=== PATIENT | female | born 1955 | race Caucasian/White ===

== ENCOUNTER 2018-04-25 13:54 | Emergency (ER) | payer MEDICAID, SELFPAY ==
[2018-04-25 14:07] VITALS: BP 178/95; PULSE 118; RESP 20; TEMP 37.1; O2SAT 97
--- NOTE | 2018-04-25 14:58 | ED.GENADUL ---
Disposition Clinical Impression: Back pain, Leg pain, left Disposition: HOME Instructions: Back Pain (ED) Additional Instructions: Please use crutches as needed for comfort over the next week. Please take ibuprofen 600 mg by mouth every 6-8 hours as needed for pain for the next few days. Please follow-up with your primary care physician. Call for an appointment. Please follow-up with neurosurgery as directed by her primary care physician. Return to the emergency department immediately for any worsening or new concerning symptoms including fever, worsening pain, neurologic deficits (weakness or numbness). Referrals: Kathleen Banks [Primary Care Provider] - Medical Decision Making - Medical Decision Making 62yo f with history of chronic low back pain, spinal stenosis, hypertension, mixed connective tissue disease, anxiety, here with back pain and left thigh/groin pain. Neuro exam nonspecific with chronic tremor. Abdominal exam benign. Patient is quite anxious. She is tachycardic I suspect as a result of pain and anxiety. She given Toradol 30 mg IM, Dilaudid 1 mg IM and Ativan 1 mg IM. She was reassessed and noted to have significant improvement in her pain. She was able to ambulate although requested crutches because she thought this would help her keep weight off of her left leg. Patient remained anxious although improved. I advised that she follow-up with her primary care physician to specifically discuss reviewing her medications for any modifications and also to follow-up with neurosurgery as referred by primary care physician. I emphasized that she should return to the ER immediately should she have any worsening or new concerning symptoms. History of Present Illness - General Chief complaint: Nk/Back Pain Stated complaint: LEG PROBLEM Time Seen by Provider: 04/25/18 13:56 Source: patient, RN notes reviewed Mode of arrival: ambulatory Limitations: no limitations - History of Present Illness Initial comments: 62-year-old female with history of mixed connective tissue disease, chronic low back pain, spinal stenosis, hypertension, tremor, anxiety, presents today with back pain. Patient states she has chronic pain in her low back typically radiates into her right leg. She was gardening 3 days ago and developed pain radiating from her low back into her left thigh and groin. Pain is been severe and worse with movement. She has had difficulty ambulating. Patient has been seen by spine clinics as well as pain center for her chronic pain. Current management includes fentanyl patches prescribed by pcp. Dose was recently increased. Patient notes chronic intermittent urinary and stool incontinence. Of note, she was seen here in emergency department for back pain on 04/06/2018 and had an MRI at that time that did show degenerative changes with disc herniation, mild central canal stenosis as well as right neural foraminal stenosis. - Related Data Atorvastatin Calcium 80 mg PO DAILY tab-cap 05/19/17 Fentanyl 75 mcg TD q 72 hrs 05/19/17 Fluoxetine HCl [Prozac] 40 mg PO DAILY tab-cap 05/19/17 Furosemide 40 mg PO DAILY tab-cap 05/19/17 Gabapentin 800 mg PO TID tab-cap 05/19/17 Hydroxychloroquine Sulfate [Plaquenil] 300 mg PO DAILY 05/19/17 Lorazepam 0.5 mg PO HS prn 05/19/17 Losartan/Hydrochlorothiazide [Losartan-Hctz 100-25 mg Tab] 1 tab-cap PO DAILY tab-cap 05/19/17 Pantoprazole Sodium [Protonix] 40 mg PO DAILY packet 05/19/17 Prednisone 30 mg PO DAILY 05/19/17 Phenergan 25 mg PO BID 05/31/17 Alendronate [Fosamax] 70 mg PO .WEEKLY 04/06/18 Amphet Asp/Amphet/D-Amphet [Adderall Xr 20MG Capsule SA] 20 mg PO DAILY 04/06/18 Dextroamphetamine/Amphetamine [Dextroamp-Amphet ER 20 mg Cap] 20 mg PO .QAFTERNOON 04/06/18 Dicyclomine [Bentyl] 10 mg PO QID 04/06/18 Pilocarpine HCl 5 mg PO DAILY 04/06/18 Allergies Allergy/AdvReac Type Severity Reaction Status Date / Time lidocaine Allergy arm numb Unverified 04/25/18 14:[address], traveled up arm diazepam [From Valium] AdvReac hyper Unverified 04/25/18 14:10 oxycodone AdvReac vomiting Unverified 04/25/18 14:10 scopolamine AdvReac makes Unverified 04/25/18 14:10 hyped up Review of Systems Constitutional: denies: chills, fever Respiratory: denies: cough, shortness of breath Cardiovascular: denies: palpitations Gastrointestinal: denies: abdominal pain, nausea, vomiting Genitourinary: denies: urgency, dysuria, frequency, discharge Musculoskeletal: as per HPI, back pain. denies: joint swelling Skin: denies: rash, lesions Neurological: denies: headache Psychiatric: anxiety Hematological/Lymphatic: denies: swollen glands Past Medical History - Past Medical History Medical history: hypertension Chronic back pain, scoliosis, possible rheumatoid arthritis, mixed connective tissue disease Surgical history: non-contributory - Social History Alcohol use: none Drug use: none General Exam - General Limitations: no limitations General appearance: alert, in no apparent distress - Eye Eye exam: Absent: scleral icterus, conjunctival injection - ENT ENT exam: Present: mucous membranes dry - Respiratory Respiratory exam: Present: normal lung sounds bilaterally - Cardiovascular Cardiovascular Exam: Present: normal rhythm, tachycardia (104), normal heart sounds - GI/Abdominal GI/Abdominal exam: Present: soft. Absent: distended, tenderness - Extremities Exam Extremities exam: Present: other (Positive straight leg on left). Absent: pedal edema, calf tenderness - Back Exam Back exam: Present: paraspinal tenderness (left lumbar mid to lower). Absent: vertebral tenderness, rash noted - Neurological Exam Neurological exam: Present: alert, other (hyporeflexive bilateral patellar). Absent: altered, motor sensory deficit - Psychiatric Psychiatric exam: Present: anxious - Skin Skin exam: Present: warm, dry, intact Course Vital Signs - 24 hr 08/07/18 14:07 Temperature 37.1 C Pulse 118 H Respiratory 20 Rate Blood Pressure 178/95 Pulse Oximetry 97
[2018-04-25] MEDS: LORazepam 2 MG/ML VIAL 1 MG IM (15:07)
[2018-04-25] MEDS: Ketorolac 15 MG/ML VIAL 30 MG IM (15:07)
[2018-04-25] MEDS: HYDROmorphone 2 MG/ML VIAL 1 MG IM (15:07)
[2018-04-25 16:59] VITALS: BP 166/93; PULSE 118; RESP 20; O2SAT 97
== END 2018-04-25 17:05 | disposition home or self-care (01) ==
PROVIDERS: Emergency Provider Student in an Organized Health Care Education/Training Program; PCP Family Medicine
DX: M54.5 Low back pain (principal); M79.605 Pain in left leg; G89.29 Other chronic pain; F41.9 Anxiety disorder, unspecified; J44.9 Chronic obstructive pulmonary disease, unspecified; F17.210 Nicotine dependence, cigarettes, uncomplicated; E11.9 Type 2 diabetes mellitus without complications; I10 Essential (primary) hypertension
CPT/HCPCS: 96372; 99284; J1885; J2060

== ENCOUNTER 2018-09-21 16:18 | Outpatient (CLI) | payer MEDICAID, SELFPAY ==
[2018-09-21 16:44] LABS: Abs Immature Grans 0.01 k/cumm (0.0-0.09); Absolute Basophil Count 0.01 k/cumm (0.0-0.2); Absolute Eosinophil Count 0.31 k/cumm (0.0-0.7); Absolute Lymphocyte Count 2.52 k/cumm (1.2-3.4); Absolute Monocyte Count 0.68 k/cumm (0.11-0.7); Absolute Neutrophil Count 5.99 k/cumm (1.2-6.7); Basophils % 0.1; Eosinophils % 3.3; HCT 36.1 % (36.0-46.0); HGB 11.3 g/dL (12.0-15.5); Immature Grans % 0.1; Lymphocytes % 26.5; Mean Corp. HGB Concentration 31.3 g/dL (32.0-36.0); Mean Corpuscular Hemoglobin 28.5 pg (27.0-33.0); Mean Corpuscular Volume 91.2 fL (80-95); Mean Platelet Volume 11.6 fL (8.0-11.0); Monocytes % 7.1; Neutrophils % 62.9; Platelet Count 323 x1000/uL (130-400); RBC 3.96 m/cumm (4.00-5.20); White Blood Cell Count 9.52 k/cumm (4.4-10.8)
[2018-09-21 16:55] LABS: Bilirubin Negative (Negative); Blood Trace-intact (Negative); Clarity Cloudy; Glucose Negative (Negative); Ketones Trace mg/dL (Negative); Leukocyte Esterase Moderate (Negative); Nitrite Negative (Negative); Specific Gravity >= 1.030 (1.005-1.025)
[2018-09-21 17:04] LABS: Bacteria Many HPF (Negative); C & S Indicated? No/Sq. Contamination; Epithelial Cells Many HPF (Negative); WBC >50 HPF (0-5)
[2018-09-21 17:35] LABS: ALT 18 U/L (12-78); AST 25 U/L (15-37); Alkaline Phosphatase 179 U/L (46-116); Anion Gap 6.2 mmol/L (3-11); BUN 14 mg/dL (7-18); Bilirubin, Total 0.2 mg/dL (0.2-1.0); C-Reactive Protein 6.47 mg/dL (0.0-0.3); CO2 36.8 mmol/L (21.0-32.0); CREATININE 1.29 mg/dL (0.55-1.02); Calcium 9.5 mg/dL (8.5-10.1); Chloride 101 mmol/L (98-107); Estimated GFR 42.01 (mL/min/1.73m2); Glucose 98 mg/dL (70-100); Potassium 3.3 mmol/L (3.5-5.1); Sodium 144 mmol/L (136-145)
== END 2018-09-21 16:38 ==
PROVIDERS: PCP Family Medicine; Visit Provider Internal Medicine Rheumatology
DX: F07.0 Personality change due to known physiological condition (principal)
CPT/HCPCS: 36415; 80053; 81003; 81015; 85025; 86140

== ENCOUNTER 2018-10-27 10:28 | Outpatient (REF) | payer MEDICAID, SELFPAY ==
[2018-10-27 13:11] LABS: Anion Gap 8.4 mmol/L (3-11); BUN 15 mg/dL (7-18); CO2 31.6 mmol/L (21.0-32.0); CREATININE 1.01 mg/dL (0.55-1.02); Calcium 9.6 mg/dL (8.5-10.1); Chloride 102 mmol/L (98-107); Estimated GFR 55.72 (mL/min/1.73m2); Glucose 90 mg/dL (70-100); Sodium 142 mmol/L (136-145)
== END 2018-10-27 10:48 ==
LOC: NCHCN 10:28
PROVIDERS: PCP Family Medicine; Visit Provider Family Medicine
DX: R60.0 Localized edema (principal)
CPT/HCPCS: 80048

== ENCOUNTER 2018-11-06 00:56 | Outpatient (CLI) | payer MEDICAID, SELFPAY ==
--- NOTE | 2018-11-06 11:21 | DI.MAMMO_ITS ---
SYMPTOMS/DIAGNOSIS: SCREENING, Z12.31, [facility], Z00.00 MAMMOGRAMS: Mammograms were interpreted according to the usual protocol including computer analysis with CAD system, tomosynthesis and C view imaging. No priors for comparison. No suspicious masses or microcalcifications are seen. There is no definite evidence of malignancy. IMPRESSION: Negative mammogram. Routine screening is recommended. Breast density C, category 1. [facility] ASSESSMENT OF FINDINGS: Negative. Category 1. Patient will receive a letter notifying them of these results. Bi-RADS category C. The breasts are heterogeneously dense, which may obscure small masses.
== END 2018-11-06 01:16 ==
PROVIDERS: PCP Family Medicine; Visit Provider Family Medicine
DX: Z12.31 Encounter for screening mammogram for malignant neoplasm of breast (principal)
CPT/HCPCS: 77063; 77067

== ENCOUNTER 2019-05-24 12:07 | Outpatient (CLI) | payer MEDICAID, SELFPAY ==
--- NOTE | 2019-05-24 14:52 | DI.RAD_ITS ---
SYMPTOMS/DIAGNOSIS: CHRONIC PRODUCTIVE COUGH, R05, H/O AUTOIMMUNE DISORDER PA AND LATERAL CHEST: The heart is not enlarged. Note is made of marked biconvex thoracolumbar scoliosis. The left lung appears clear. There is increased radiodensity at the right lung base, particularly medially, raising the possibility of a right lower lobe and/or middle lobe infiltrate. Upper right lung zone appears fairly clear. No pleural effusions seen. CONCLUSION: Findings suggestive of right basilar patchy pneumonia. Appropriate follow-up studies requested.
== END 2019-05-24 12:27 ==
PROVIDERS: PCP Family Medicine; Visit Provider Family Medicine
DX: R05 Cough (principal); J18.9 Pneumonia, unspecified organism
CPT/HCPCS: 71046

== ENCOUNTER 2019-07-10 11:59 | Outpatient (REF) | payer MEDICAID, SELFPAY ==
[2019-07-10 21:34] LABS: HCT 38.3 % (36.0-46.0); HGB 11.7 g/dL (12.0-15.5); Mean Corp. HGB Concentration 30.5 g/dL (32.0-36.0); Platelet Count 292 x1000/uL (130-400); RBC 4.03 m/cumm (4.00-5.20); RBC Distribution Width 14.1 % (11.7-14.6)
[2019-07-10 21:39] LABS: Anion Gap 6.9 mmol/L (3-11); BUN 17 mg/dL (7-18); CO2 32.1 mmol/L (21.0-32.0); CREATININE 1.19 mg/dL (0.55-1.02); Chloride 103 mmol/L (98-107); Estimated GFR 45.96 (mL/min/1.73m2); Glucose 90 mg/dL (70-100); Potassium 4.3 mmol/L (3.5-5.1); Sodium 142 mmol/L (136-145)
== END 2019-07-10 12:19 ==
LOC: NCHCN 11:59
PROVIDERS: PCP Family Medicine; Visit Provider Specialist/Technologist Athletic Trainer
DX: K21.9 Gastro-esophageal reflux disease without esophagitis (principal); I10 Essential (primary) hypertension; Z01.818 Encounter for other preprocedural examination
CPT/HCPCS: 80048; 85027

== ENCOUNTER 2019-08-29 09:56 | Outpatient (REF) | payer MEDICAID, SELFPAY ==
[2019-08-29 19:20] LABS: HCT 37.7 % (36.0-46.0); HGB 11.6 g/dL (12.0-15.5); Mean Corp. HGB Concentration 30.8 g/dL (32.0-36.0); Mean Corpuscular Hemoglobin 28.9 pg (27.0-33.0); Mean Platelet Volume 12.7 fL (8.0-11.0); Platelet Count 230 x1000/uL (130-400); RBC 4.01 m/cumm (4.00-5.20); RBC Distribution Width 14.1 % (11.7-14.6)
[2019-08-29 19:36] LABS: ALT 23 U/L (14-59); AST 21 U/L (15-37); Albumin 3.5 g/dL (3.4-5.0); Alkaline Phosphatase 180 U/L (46-116); Anion Gap 7.6 mmol/L (3-11); BUN 18 mg/dL (7-18); Bilirubin, Total 0.2 mg/dL (0.2-1.0); CO2 32.4 mmol/L (21.0-32.0); CREATININE 1.07 mg/dL (0.55-1.02); Calcium 8.8 mg/dL (8.5-10.1); Chloride 105 mmol/L (98-107); Estimated GFR 51.96 (mL/min/1.73m2); Glucose 93 mg/dL (74-106); Potassium 4.1 mmol/L (3.5-5.1); Sodium 145 mmol/L (136-145); Total Protein 6.2 g/dL (6.4-8.2)
== END 2019-08-29 10:16 ==
LOC: NCHCN 09:56
PROVIDERS: PCP Family Medicine; Visit Provider Specialist/Technologist Athletic Trainer
DX: I10 Essential (primary) hypertension (principal); K21.9 Gastro-esophageal reflux disease without esophagitis; Z86.39 Personal history of other endocrine, nutritional and metabolic disease; Z01.818 Encounter for other preprocedural examination
CPT/HCPCS: 80053; 85027

== ENCOUNTER 2019-10-30 14:02 | Outpatient (CLI) | payer MEDICAID, SELFPAY ==
--- NOTE | 2019-10-30 14:32 | DI.RAD_ITS ---
EXAM: XR SHOULDER RT COMPLETE 2+V INDICATION: PAIN. COMPARISON: RIGHT SHOULDER COMPLETE from 10/25/2017 TECHNIQUE: 2D digital imaging was performed. FINDINGS: There are severe degenerative changes of the glenohumeral joint, which appear to have worsened when c ompared with the previous exam. There is spurring from the inferior glenoid and inferior humeral hea d where there are also subchondral cysts. Humeral head appears normally positioned. There are no si gnificant AC joint degenerative changes. IMPRESSION: Severe degenerative changes of the glenohumeral joint.
== END 2019-10-30 14:22 ==
PROVIDERS: PCP Family Medicine; Visit Provider Student in an Organized Health Care Education/Training Program
DX: M25.511 Pain in right shoulder (principal); M19.011 Primary osteoarthritis, right shoulder
CPT/HCPCS: 73030

== ENCOUNTER 2019-11-28 02:43 | Outpatient (CLI) | payer MEDICAID, SELFPAY ==
--- NOTE | 2019-11-28 11:51 | DI.MRI_ITS ---
EXAM: MR UPPER JOINT RT WO CLINICAL HISTORY: SHOULDER REPLACEMENT PLANNING. EVALUATE INTEGRITY OF ROTATOR CUFF, DEGENERATIVE A RTHRITIS RT SHOULDER REGION, M19.011, PRIMARY OSTEOARTHRITIS. TECHNIQUE: Multiplanar multisequence MRI was performed. Exam is limited by patient motion. COMPARISON: Plain films dated October,. FINDINGS: There is no fracture or contusion pattern. The acromioclavicular joint is normal. There is minimal fluid in the subacromial-subdeltoid bursa. There is some fluid around the biceps te ndon. There is a small amount of fluid in the subcoracoid bursa as well as in the posterior glenohum eral joint space. There is a question of a loose body in the subcoracoid effusion. The supraspinatus tendonshows some thickening and increased signal but no evidence of a full-thicknes s tear or retraction. The infraspinatus, subscapularis and teres minor tendons are grossly intact. The biceps tendon is normally located. The anchor is well maintained. There is severe narrowing of the glenohumeral joint. There is high signal in the glenoid. The labru m is not well seen. IMPRESSION: Severely limited exam due to patient motion. Severe degenerative changes of the glenohumeral joint. No gross evidence of a rotator cuff tear. DATA REPOSITORY:
== END 2019-11-28 03:03 ==
PROVIDERS: PCP Family Medicine; Visit Provider Student in an Organized Health Care Education/Training Program
DX: M25.511 Pain in right shoulder (principal); M19.011 Primary osteoarthritis, right shoulder; M25.411 Effusion, right shoulder
CPT/HCPCS: 73221

== ENCOUNTER 2020-03-10 21:23 | Outpatient (REF) | payer MEDICAID, SELFPAY ==
[2020-03-10 21:31] LABS: ALT 63 U/L (14-59); AST 45 U/L (15-37); Albumin 3.6 g/dL (3.4-5.0); Alkaline Phosphatase 167 U/L (46-116); Anion Gap 9.5 mmol/L (3-11); BUN 17 mg/dL (7-18); Bilirubin, Total 0.3 mg/dL (0.2-1.0); CO2 29.5 mmol/L (21.0-32.0); CREATININE 1.37 mg/dL (0.55-1.02); Calcium 8.9 mg/dL (8.5-10.1); Chloride 102 mmol/L (98-107); Estimated GFR 39.07 (mL/min/1.73m2); Glucose 82 mg/dL (74-106); Potassium 4.1 mmol/L (3.5-5.1); Sodium 141 mmol/L (136-145); TSH (W/Ref FT4) 1.76 uIU/mL (0.36-3.74); Total Protein 6.2 g/dL (6.4-8.2)
[2020-03-10 21:33] LABS: Abs Immature Grans 0.02 k/cumm (0.0-0.09); Absolute Basophil Count 0.01 k/cumm (0.0-0.2); Absolute Eosinophil Count 0.34 k/cumm (0.0-0.7); Absolute Lymphocyte Count 2.63 k/cumm (1.2-3.4); Absolute Monocyte Count 0.45 k/cumm (0.11-0.7); Basophils % 0.1; HCT 36.4 % (36.0-46.0); HGB 11.1 g/dL (12.0-15.5); Immature Grans % 0.3 %; Mean Corp. HGB Concentration 30.5 g/dL (32.0-36.0); Mean Corpuscular Hemoglobin 28.3 pg (27.0-33.0); Mean Corpuscular Volume 92.9 fL (80-95); Mean Platelet Volume 12.3 fL (8.0-11.0); Monocytes % 6.7; Neutrophils % 48.9; Platelet Count 246 x1000/uL (130-400); RBC 3.92 m/cumm (4.00-5.20); RBC Distribution Width 15.6 % (11.7-14.6); White Blood Cell Count 6.75 k/cumm (4.4-10.8)
[2020-03-10 22:35] LABS: ESR 16 mm/hr (0-30)
== END 2020-03-10 21:43 ==
LOC: NCHCN 21:23
PROVIDERS: PCP Family Medicine; Visit Provider Family Medicine
DX: R53.83 Other fatigue (principal); R41.844 Frontal lobe and executive function deficit; R25.1 Tremor, unspecified
CPT/HCPCS: 80053; 85652; 84443; 85025

== ENCOUNTER 2020-05-19 02:10 | Outpatient (CLI) | payer MEDICAID, SELFPAY ==
--- NOTE | 2020-05-19 | DI.US_ITS ---
EXAM: US RENAL CLINICAL HISTORY: URINARY RETENTION,R33.9. TECHNIQUE: Montez scale, color and spectral Doppler were used. COMPARISON: No exams were available for comparison FINDINGS: Renal size in cm: Right: 8.7. Left: 7.9. Echogenicity: Normal. Hydronephrosis: No. Cyst or mass: No. Nephrolithiasis: No. Other findings: None. Bladder:Incompletely distended. Cannot be evaluated well. Ureteral jets: Right: Not visualized. Left: Not visualized. Prevoid vol:15 cc Postvoid vol:The patient could not void during the examination. Renal color flow: Symmetric and within normal limits. IMPRESSION: 1. Limited examination due to inadequately distended urinary bladder. 2. No evidence of nephrolithiasis or hydronephrosis. DATA REPOSITORY:
== END 2020-05-19 02:30 ==
PROVIDERS: PCP Family Medicine; Visit Provider Urology
DX: R33.9 Retention of urine, unspecified (principal)
CPT/HCPCS: 76770

== ENCOUNTER 2020-08-13 16:08 | Emergency (ER) | payer MEDICAID, SELFPAY ==
[2020-08-13] VITALS (29 sets, daily range): BP systolic 71–206; BP diastolic 38–169; PULSE 72–212; RESP 10–37; TEMP 36.6; O2SAT 83–100
--- NOTE | 2020-08-13 16:30 | RT.EKG_ITS ---
APPROVED REPORT Exam: Resting ECG Patient Location: E HR:89 bpm ECG Measurements Heart Rate 89 AXIS VA 160 P 51 QRSd 97 QRS 48 QT 398 T 27 QTc 484 Conclusion Sinus rhythm...normal P axis, V-rate 60- 99 I have reviewed and interpreted ECG and agree with software generated interpretation.
[2020-08-13 17:23] LABS: Abs Immature Grans 0.04 10^3/uL (0.0-0.06); Absolute Basophil Count 0.04 10^3/uL (0.0-0.2); Absolute Lymphocyte Count 3.28 10^3/uL (1.2-3.4); Absolute Monocyte Count 0.49 10^3/uL (0.1-0.8); Basophils % 0.4; Eosinophils % 3.7; HCT 41.3 % (36.0-46.0); HGB 12.8 g/dL (11.2-15.7); Immature Grans % 0.4; Lymphocytes % 30.3; MCV 93.7 fL (80-95); MPV 11.9 fL (8.0-11.0); Monocytes % 4.5; Neutrophils % 60.7; Nucleated RBC 0 %; Platelet Count 247 10^3/uL (130-400); RBC 4.41 10^6/uL (3.93-5.22); RDW 14.4 % (11.7-14.6); RDW-SD 49.5 fL; WBC 10.84 10^3/uL (4.4-10.8)
[2020-08-13 17:43] LABS: ALT 32 U/L (14-59); AST 24 U/L (15-37); Albumin 3.7 g/dL (3.4-5.0); Alkaline Phosphatase 181 U/L (46-116); Anion Gap 5.5 mmol/L (3-11); BUN 29 mg/dL (7-18); Bilirubin, Total 0.5 mg/dL (0.2-1.0); CO2 32.5 mmol/L (21.0-32.0); CREATININE 2.32 mg/dL (0.55-1.02); Calcium 9.1 mg/dL (8.5-10.1); Chloride 101 mmol/L (98-107); ETHANOL BLOOD 3.6 mg/dL (<3); Glucose 81 mg/dL (74-106); Magnesium 2.1 mg/dL (1.8-2.4); Sodium 139 mmol/L (136-145); Total Protein 7.1 g/dL (6.4-8.2)
--- NOTE | 2020-08-13 17:44 | W.ED.GENAD ---
Discharge Plan Disposition Patient Disposition: HOME Condition: Improving Discharge Details Clinical Impression: Fatigue, Dehydration, Acute kidney injury superimposed on chronic kidney disease Primary Care Provider: Kathleen Banks ED Provider: Maddy Campoverde Home Meds and New Rx's Prescriptions: Continued fluoxetine [Prozac] 40 MG capsule 40 mg PO DAILY RF: 0 furosemide 40 MG tablet 40 mg PO DAILY RF: 0 atorvastatin 80 MG tablet 80 mg PO DAILY RF: 0 gabapentin 600 MG tablet 1,200 mg PO TID RF: 0 lorazepam 0.5 MG tablet 1 mg PO HS prn RF: 0 hydroxychloroquine [Plaquenil] 200 MG tablet 300 mg PO DAILY RF: 0 Protonix [address] for susp in packet 40 mg PO DAILY RF: 0 fentanyl 1 EACH patch 72 hour 75 mcg Transdermal q 72 hrs RF: 0 phenergan 25 mg PO BID RF: 0 pilocarpine HCl 5 MG tablet 5 mg PO DAILY RF: 0 alendronate 70 MG tablet 70 mg PO .WEEKLY RF: 0 dicyclomine 10 MG capsule 10 mg PO QID RF: 0 Discharge Instructions Instructions: Dehydration (ED), Fatigue (ED) Additional Instructions: Drink plenty of fluids and get plenty of rest. Take your regular medications as directed. Call your primary care doctor's office on Tuesday for a follow-up appointment within the next week. Return immediately to the emergency department if you develop any worsening or new concerning symptoms. Discharge Data Discharge Date/Time-TO BE ENTERED AT DEPARTURE: 08/13/20 20:24 Discharge Physician: Maddy Campoverde Medical Decision Making 1620 -- 65-year-old female with a history of chronic shoulder and back pain, osteoarthritis, Sjogren's syndrome, hypertension, hyperlipidemia presents for extreme fatigue and difficulty awakening today for family. She denies fever, headache, dizziness, chest pain, cough, abdominal pain, vomiting or diarrhea. Concern for possible polymedication due to multiple sedating meds. Blood pressure 97/45. She is afebrile and appears nontoxic. She is drowsy but is awake and alert and oriented x3 and able to answer questions. No meningeal signs. EKG notes a rate of 89, sinus with no acute ST-T wave ischemic changes. History and presentation not consistent with meningitis, acute cva, acs, PE. 1830 -- Screening labs obtained on arrival and note VICKY overlying CKD. Troponin negative. Alcohol level 3. Urinalysis negative. UDS notes TCAs, do not see a TCA in her medication list so unsure if this is a component of one of her medications. Confirmed with her daughter that she is not taking a TCA. Normal QRS on EKG. CT head and CT chest negative for acute findings. CT chest noted pulmonary nodules which patient is previously aware. 191 -- Patient given 2 L of fluid. BP 95/78. Creatinine improving down to 2.03 after 1 L of IV fluids and suspect this will continue to improve after the second liter given. Patient states she feels good to go home. She is awake and alert. She was able to ambulate with a walker and denied any symptoms. Case discussed with daughter and patient's and they feel comfortable with patient going home. Advised to follow up with the primary care doctor for re-evaluation. Usual and customary return precautions given prior to discharge. Medical Records Medical records reviewed: Yes I reviewed the patient's medical records. Imaging Data Radiologic Study: Radiologist's impression: CT Chest Without Contrast; Diagnostic Exam date and time: 08/13/2020 6:34 PM Age: 65 years old Clinical indication: Other: Fatigue TECHNIQUE: Imaging protocol: Diagnostic computed tomography of the chest without contrast. COMPARISON: CR XR CHEST 2V PA LATERAL 01/25/2019 14:51 FINDINGS: Lungs: Left lower lobe posterior segment reticular markings. Reticular markings right lower lobe costophrenic angle. Three left lower lobe pulmonary nodules with the largest measuring 0.4 cm and 2 smaller nodule series 2, image 43. Pleural space: Bilateral posterior pleural thickening. Heart: Unremarkable. No cardiomegaly. No pericardial effusion. Aorta: Atherosclerotic disease. Lymph nodes: Unremarkable. No enlarged lymph nodes. Liver: Hepatic steatosis. Bones/joints: Degenerative scoliotic changes of the thoracic spine. Osteoarthritic degenerative changes of the right shoulder. Mild degenerative changes of the left shoulder. Soft tissues: Unremarkable. IMPRESSION: 1. No acute findings. 2. Bibasilar reticular markings consistent with scar or atelectasis. 3. Three left lower lobe pulmonary nodules as discussed above. 4. Multiple additional findings as discussed above. CT Head Without Contrast Exam date and time: 08/13/2020 6:31 PM Age: 65 years old Clinical indication: Dizziness and other: Fatigue TECHNIQUE: Imaging protocol: Computed tomography of the head without contrast. COMPARISON: No relevant prior studies available. FINDINGS: Brain: Age-related involutional changes and chronic microvascular ischemic disease. No evidence for acute transcortical infarct. No mass effect or midline shift. No extra-axial collection. No acute intracranial hemorrhage. Basal cisterns are patent. Cerebral ventricles: No ventriculomegaly. Bones/joints: Unremarkable. No acute fracture. Paranasal sinuses: Mucosal thickening involving the right-sided paranasal sinuses. Mastoid air cells: Visualized mastoid air cells are well aerated. Soft tissues: Unremarkable. IMPRESSION: No evidence for acute transcortical infarct, acute intracranial hemorrhage, or mass effect. Lab Data Lab results reviewed: Yes I reviewed the patient's lab results. Labs: Laboratory Tests Range/Units 08/13/20 08/13/20 08/13/20 17:00 17:00 18:25 WBC (4.4-10.8) 10^3/uL 10.84 H RBC (3.93-5.22) 10^6/uL 4.41 Hgb (11.2-15.7) g/dL 12.8 Hct (36.0-46.0) % 41.3 MCV (80-95) fL 93.7 MCH (27.0-33.0) pg 29.0 MCHC (32.0-36.0) % 31.0 L RDW (11.7-14.6) % 14.4 Plt Count (130-400) 10^3/uL 247 MPV (8.0-11.0) fL 11.9 H Immature Gran % 0.4 Neutrophils % 60.7 Lymphocytes % 30.3 Monocytes % 4.5 Eosinophils % 3.7 Basophils % 0.4 Nucleated RBC % % 0 Absolute Neutrophils (1.2-6.7) 10^3/uL 6.58 Absolute Lymphocytes (1.2-3.4) 10^3/uL 3.28 Absolute Monocytes (0.1-0.8) 10^3/uL 0.49 Absolute Eosinophils (0.0-0.7) 10^3/uL 0.40 Absolute Basophils (0.0-0.2) 10^3/uL 0.04 Sodium (136-145) mmol/L 139 Potassium (3.5-5.1) mmol/L 4.0 Chloride (98-107) mmol/L 101 Carbon Dioxide (21.0-32.0) mmol/L 32.5 H Anion Gap (3-11) mmol/L 5.5 BUN (7-18) mg/dL 29 H Creatinine (0.55-1.02) mg/dL 2.32 H Estimated GFR/1.73 m2 (mL/min/1.73m2) 21.20 Glucose (74-106) mg/dL 81 Calcium (8.5-10.1) mg/dL 9.1 Magnesium (1.8-2.4) mg/dL 2.1 Total Bilirubin (0.2-1.0) mg/dL 0.5 AST (15-37) U/L 24 ALT (14-59) U/L 32 Alkaline Phosphatase (46-116) U/L 181 H Troponin I (<0.06) ng/mL < 0.05 Total Protein (6.4-8.2) g/dL 7.1 Albumin (3.4-5.0) g/dL 3.7 Urine Color (Yellow) Urine Clarity (Clear) Urine pH (5-8) Ur Specific [place] (1.005-1.025) Urine Protein (Negative) mg/dL Urine Ketones (Negative) mg/dL Urine Blood (Negative) Urine Nitrite (Negative) Urine Bilirubin (Negative) Urine Urobilinogen (Up TO 0.2) EU/dL Ur Leukocyte Esterase (Negative) Urine Glucose (Negative) mg/dL Urine Opiates Screen (Negative) Negative Urine Methadone Screen (Negative) Negative Ur Barbiturates Screen (Negative) Negative Ur Tricyclics Screen (Negative) Positive A Ur Amphetamines Screen (Negative) Negative U Benzodiazepines Scrn (Negative) Negative Urine Cocaine Screen (Negative) Negative Ur THC Screen (Negative) Negative Ethyl Alcohol (<3) mg/dL 3.6 Range/Units 08/13/20 08/13/20 18:25 19:20 WBC (4.4-10.8) 10^3/uL RBC (3.93-5.22) 10^6/uL Hgb (11.2-15.7) g/dL Hct (36.0-46.0) % MCV (80-95) fL MCH (27.0-33.0) pg MCHC (32.0-36.0) % RDW (11.7-14.6) % Plt Count (130-400) 10^3/uL MPV (8.0-11.0) fL Immature Gran % Neutrophils % Lymphocytes % Monocytes % Eosinophils % Basophils % Nucleated RBC % % Absolute Neutrophils (1.2-6.7) 10^3/uL Absolute Lymphocytes (1.2-3.4) 10^3/uL Absolute Monocytes (0.1-0.8) 10^3/uL Absolute Eosinophils (0.0-0.7) 10^3/uL Absolute Basophils (0.0-0.2) 10^3/uL Sodium (136-145) mmol/L 139 Potassium (3.5-5.1) mmol/L 3.9 Chloride (98-107) mmol/L 104 Carbon Dioxide (21.0-32.0) mmol/L 32.0 Anion Gap (3-11) mmol/L 3.0 BUN (7-18) mg/dL 27 H Creatinine (0.55-1.02) mg/dL 2.03 H Estimated GFR/1.73 m2 (mL/min/1.73m2) 24.74 Glucose (74-106) mg/dL 78 Calcium (8.5-10.1) mg/dL 8.6 Magnesium (1.8-2.4) mg/dL Total Bilirubin (0.2-1.0) mg/dL AST (15-37) U/L ALT (14-59) U/L Alkaline Phosphatase (46-116) U/L Troponin I (<0.06) ng/mL Total Protein (6.4-8.2) g/dL Albumin (3.4-5.0) g/dL Urine Color (Yellow) Yellow Urine Clarity (Clear) Clear Urine pH (5-8) 5.5 Ur Specific [place] (1.005-1.025) >= 1.030 H Urine Protein (Negative) mg/dL Negative Urine Ketones (Negative) mg/dL Negative Urine Blood (Negative) Negative Urine Nitrite (Negative) Negative Urine Bilirubin (Negative) Negative Urine Urobilinogen (Up TO 0.2) EU/dL 0.2 Ur Leukocyte Esterase (Negative) Negative Urine Glucose (Negative) mg/dL Negative Urine Opiates Screen (Negative) Urine Methadone Screen (Negative) Ur Barbiturates Screen (Negative) Ur Tricyclics Screen (Negative) Ur Amphetamines Screen (Negative) U Benzodiazepines Scrn (Negative) Urine Cocaine Screen (Negative) Ur THC Screen (Negative) Ethyl Alcohol (<3) mg/dL ECG Data Attestation: I personally reviewed and interpreted this ECG (s) as follows: Interpretation: rate of 89, sinus, no acute ST elevation or depression. TN 160. QRS 97. QTc 44. HPI General Mode of arrival: EMS. Date/Time Provider Initiated Documentation: 08/13/20 16:30. Limitations to Documentation: no limitations. Information obtained by: patient. HPI Narrative: Patient is a 65-year-old female with a history of chronic shoulder and back pain, osteoarthritis, GERD, hypertension, hyperlipidemia, Sjogren's syndrome presents for difficulty awakening and extreme fatigue per family since yesterday. Per EMS, family stated that patient usually sleeps about 6 hours and she had been sleeping for about 20 hours since yesterday and they were having difficulty waking her. Upon arrival of EMS to the residence, patient was sitting on the couch awake and answering questions. Patient's and and daughter administer her medications and she denies any overdose, intentional or accidental on any part. She states she has not been drinking much since yesterday. She states she had similar symptoms in the past when she has had pneumonia. She denies headache, neck pain, sore throat, ear pain, cough, chest pain, shortness of breath, abdominal pain, nausea, vomiting, diarrhea or urinary symptoms. She denies any recent travel or known sick contacts. Related Data Home Medications Medication Instructions Recorded Confirmed Protonix 40 mg PO DAILY packet 05/19/17 12/04/19 atorvastatin 80 mg PO DAILY tab-cap 05/19/17 08/13/20 fentanyl 75 mcg TRANSDERMAL q 72 hrs 05/19/17 08/13/20 fluoxetine [Prozac] 40 mg PO DAILY tab-cap 05/19/17 08/13/20 furosemide 40 mg PO DAILY tab-cap 05/19/17 12/04/19 gabapentin 1,200 mg PO TID tab-cap 05/19/17 08/13/20 hydroxychloroquine [Plaquenil] 300 mg PO DAILY 05/19/17 08/13/20 lorazepam 1 mg PO HS prn 05/19/17 08/13/20 Phenergan 25 mg PO BID 05/31/17 12/04/19 alendronate 70 mg PO .WEEKLY 04/06/18 12/04/19 dicyclomine 10 mg PO QID 04/06/18 08/13/20 pilocarpine HCl 5 mg PO DAILY 04/06/18 12/04/19 Allergies Allergy/AdvReac Type Severity Reaction Status Date / Time lidocaine Allergy arm numb Unverified 08/13/20 16:[address], traveled up arm diazepam [From Valium] AdvReac hyper Unverified 08/13/20 16:49 oxycodone AdvReac vomiting Unverified 08/13/20 16:49 scopolamine AdvReac makes Unverified 08/13/20 16:49 hyped up General Stated Complaint: AMS/LOC FLORINA: 2 Review of Systems All systems reviewed & are unremarkable except as noted in HPI and below Constitutional Constitutional: Reports as per HPI, Denies chills, Reports fatigue and Denies fever(s) Eyes Eyes: Denies blurry vision ENT Ears, Nose, Mouth, and Throat: Denies dizziness, Denies sore throat and Denies throat swelling Cardiovascular Cardiovascular: Denies chest pain and Denies dyspnea Respiratory Respiratory: Denies cough and Denies dyspnea Gastrointestinal Gastrointestinal: Denies abdominal pain, Denies diarrhea and Denies vomiting Genitourinary Genitourinary: Denies hematuria and Denies dysuria Musculoskeletal Musculoskeletal: Denies back pain and Denies numbness Integumentary/Breasts Skin/Breast: Denies lesions and Denies rash Neurologic Neurologic: Denies dizziness, Denies localized weakness and Denies numbness Endocrine Endocrine: Reports fatigue Allergic/Immunologic Allergic/Immunologic: Denies throat swelling [facility] Medical History (Updated 08/13/20 @ 20:09 by Maddy Campoverde DO) Anxiety Arthralgia Blood glucose elevated Chronic back pain Cognitive deficits Colon polyps Degenerative arthritis of right shoulder region Dental caries GERD (gastroesophageal reflux disease) Goiter H/O: hysterectomy HTN (hypertension) Hyperlipidemia IBS (irritable bowel syndrome) Menopause Rotator cuff impingement syndrome Smoker Spinal stenosis Tremor Surgical History (Updated 06/15/17 @ 10:28 by Monse Ramsay) Colonoscopy - [facility] (06/03/17) Social History Smoking/Tobacco Use Status: Current every day Tobacco Type: cigarettes Smoking risk assessment performed?: Yes Alcohol Intake: current Alcohol Intake frequency: holidays/special occasions only Drug use: Never Substance use type: does not use Do you feel safe at home: Yes Do you feel safe in your relationship?: Yes Exam Const General: cooperative and no acute distress Nutritional Appearance: average body habitus Orientation: awake, oriented x3 and other (drowsy) [facility] Head: normal to inspection Ears: hearing grossly normal bilaterally and external ears normal General nose exam: external nose normal Face and sinus: normal facial exam Mouth: oral mucosae normal Teeth and gingiva: dentition normal Throat: posterior oropharynx normal Eyes General: appearance normal, both eyes and all related structures Eyelids: eyelids normal Pupils: PERRL EOM: EOM intact bilaterally Neck Neck: normal visual inspection Lymphatic: no lymphadenopathy noted Chest Chest: normal inspection of the chest Resp Effort & Inspection: normal respiratory effort and able to speak in complete sentences Auscultation: clear to auscultation bilaterally Cardio Rate: regular rate Rhythm: regular rhythm GI Inspection: normal to inspection Palpation: soft, not firm, no guarding, no hepatosplenomegaly, no masses and nontender Auscultation: normal bowel sounds Back/Spine/Pelvis Thoracic/Lumbar Spine: thoracic and lumbar spine normal to inspection Skin General skin exam: no rashes or lesions noted Neuro General: patient awake, gait normal, moves all extremities, no meningeal signs, no focal motor deficits and other (drowsy) Cranial Nerves: CN's II-XI intact bilaterally Cognition: normal cognition Speech: speech normal Gait: normal gait Motor: muscle tone normal throughout and strength 5/5 throughout Sensory Exam: no sensory deficits noted Extrem General: normal to inspection, full ROM and capillary refill normal Psych Appearance: grossly normal Mental Status: mental status grossly normal Speech and Movement: speech and movement normal Affect: normal affect Thought Process: normal Course Vital Signs Vital signs: Vital Signs Temperature 97.9 F 08/13/20 16:11 Pulse 94 H 08/13/20 16:11 Respiratory Rate 16 08/13/20 16:11 Blood Pressure 97/45 L 08/13/20 16:11 Pulse Oximetry 93 08/13/20 16:11 Temperature 97.9 F 08/13/20 16:11 Temperature Source Temporal Artery Scan 08/13/20 16:11 Pulse 94 H 08/13/20 16:11 Respiratory Rate 16 08/13/20 16:11 Respiratory Effort 08/13/20 16:44 Blood Pressure 97/45 L 08/13/20 16:11 Pulse Oximetry 88 L 08/13/20 17:07 Oxygen Delivery Method Room Air 08/13/20 17:07 Oxygen Flow Rate 0 08/13/20 17:07 Pain Level 4 08/13/20 16:11
[2020-08-13 17:45] LABS: Troponin I < 0.05 ng/mL (<0.06)
--- NOTE | 2020-08-13 17:45 | DI.CT_ITS ---
EXAM: CT CHEST WO CLINICAL HISTORY: fatigue, r/o acute disease TECHNIQUE: Imaging Protocol: Axial computed tomography images with coronal and sagittal reformatted images were created and reviewed CONTRAST MATERIAL: Intravenous: None COMPARISON: Chest x-ray 05/24/2019 was reviewed FINDINGS: Lung olivo: There is plate-like atelectasis in the posterior basal segment of the left lower lobe, a s evident on the prior chest x-ray listed above. Minimal increased markings benign appearance in the right lung base posterior basal segment right lower lobe. There are no pleural effusions. There is a pleural-based noncalcified nodule in the anterior basal segment of the left lower lobe whi ch measures 5 x 4 millimeters. There is also noncalcified nodule in the lateral basal segment of the left lower lobe measuring 3 x 3 millimeters and another adjacent nodule measuring 2 millimeters. No other left lung nodules. In the opposite-right lung there is mild pleural-based infiltrate posteriorly over the right lower lo be, not associated with pleural effusion. No overlying rib destruction. Mediastinum and [place]: No dominant adenopathy or fluid collection. Thyroid gland appears unremarkable. Heart: Heart size is normal. There is no pericardial effusion. Caliber of the thoracic aorta is wit hin normal limits. Visualized upper abdomen: No significant adrenal masses. Osseous: No lytic osseous lesions identified. Advanced degenerative changes in the right shoulder edi int. IMPRESSION: Three small noncalcified left lung nodules as described above. Appropriate follow-up recommended. T here are no pleural effusions nor intrathoracic adenopathy. Platelike atelectasis in the left lung base, as evident on prior chest x-ray of May 2019. RADIATION DOSE DELIVERED: 484.96mGy.cm Total DLP DATA REPOSITORY: All CT scans at this facility are submitted to the National Radiology Data Registry (NRDR) Dose Index Registry (DIR) with the [employer] ([employer]). RADIATION OPTIMIZATION: All CT scans at this facility use at least one of these dose optimization te chniques: automated exposure control; mA and/or kV adjustment per patient size (includes targeted exa ms where dose is matched to clinical indication); or iterative reconstruction.
--- NOTE | 2020-08-13 17:45 | DI.CT_ITS ---
EXAM: CT HEAD WO CLINICAL HISTORY: fatigue, r/o acute cva, mass. TECHNIQUE: Imaging Protocol: Axial computed tomography images with coronal and sagittal reformatted images were created and reviewed COMPARISON: No exams were available for comparison FINDINGS: Ventricles and Extra axial spaces: Normal in size and morphology for the patient's age. Hemorrhage: None. Cerebral parenchyma: Normal. Midline shift: None. Brainstem/Cerebellum: Normal. Calvarium: Normal. Visualized Paranasal sinuses/Mastoids: There is evidence of previous bilateral maxillary sinus surger y. There is bilateral periosteal thickening in both maxillary sinuses. No fluid levels therein. Th ere is mucosal thickening in both sphenoid sinuses as well as right-sided ethmoidal air cells. Mild mucosal thickening in the right frontal sinus and right fronto ethmoidal recess evident. Mastoid air cells are clear and there is no fluid in the middle ear cavities. There is pneumatization of both p etrous temporal bones but no fluid. IMPRESSION: No acute intracranial process. Evidence of previous bilateral maxillary sinus surgery + paranasal sinus disease as described above. RADIATION DOSE DELIVERED: 699.3mGy.cm Total DLP DATA REPOSITORY: All CT scans at this facility are submitted to the National Radiology Data Registry (NRDR) Dose Index Registry (DIR) with the [employer] (ACR). RADIATION OPTIMIZATION: All CT scans at this facility use at least one of these dose optimization te chniques: automated exposure control; mA and/or kV adjustment per patient size (includes targeted exa ms where dose is matched to clinical indication); or iterative reconstruction.
[2020-08-13 17:48] LABS: Absolute Neutrophil Count 6.58 10^3/uL (1.2-6.7)
[2020-08-13] MEDS: Normal Saline 1,000 ML 1000 ML IV ×2 (18:32→19:20)
--- NOTE | 2020-08-13 18:54 | DI.VRAD_ITS ---
PROCEDURE INFORMATION: Exam: CT Head Without Contrast Exam date and time: 08/13/2020 6:31 PM Age: 65 years old Clinical indication: Dizziness and other: Fatigue TECHNIQUE: Imaging protocol: Computed tomography of the head without contrast. COMPARISON: No relevant prior studies available. FINDINGS: Brain: Age-related involutional changes and chronic microvascular ischemic disease. No evidence for acute transcortical infarct. No mass effect or midline shift. No extra-axial collection. No acute intracranial hemorrhage. Basal cisterns are patent. Cerebral ventricles: No ventriculomegaly. Bones/joints: Unremarkable. No acute fracture. Paranasal sinuses: Mucosal thickening involving the right-sided paranasal sinuses. Mastoid air cells: Visualized mastoid air cells are well aerated. Soft tissues: Unremarkable. IMPRESSION: No evidence for acute transcortical infarct, acute intracranial hemorrhage, or mass effect. Dictated and Authenticated by: Greg Da Silva MD. Ordering:ALDA Castañeda MD
--- NOTE | 2020-08-13 18:55 | DI.VRAD_ITS ---
PROCEDURE INFORMATION: Exam: CT Chest Without Contrast; Diagnostic Exam date and time: 08/13/2020 6:34 PM Age: 65 years old Clinical indication: Other: Fatigue TECHNIQUE: Imaging protocol: Diagnostic computed tomography of the chest without contrast. COMPARISON: CR XR CHEST 2V PA LATERAL 01/25/2019 14:51 FINDINGS: Lungs: Left lower lobe posterior segment reticular markings. Reticular markings right lower lobe costophrenic angle. Three left lower lobe pulmonary nodules with the largest measuring 0.4 cm and 2 smaller nodule series 2, image 43. Pleural space: Bilateral posterior pleural thickening. Heart: Unremarkable. No cardiomegaly. No pericardial effusion. Aorta: Atherosclerotic disease. Lymph nodes: Unremarkable. No enlarged lymph nodes. Liver: Hepatic steatosis. Bones/joints: Degenerative scoliotic changes of the thoracic spine. Osteoarthritic degenerative changes of the right shoulder. Mild degenerative changes of the left shoulder. Soft tissues: Unremarkable. IMPRESSION: 1. No acute findings. 2. Bibasilar reticular markings consistent with scar or atelectasis. 3. Three left lower lobe pulmonary nodules as discussed above. 4. Multiple additional findings as discussed above. As per Fleischner Society guidelines for follow-up and management of pulmonary nodules: For patients at low risk (minimal or absent history of smoking and of other known risk factors), no follow-up needed. For patient at high risk (history of smoking or of other known risk factors), recommend follow-up chest CT at 12 months; if unchanged, no further follow-up needed. Dictated and Authenticated by: Rain Borrero MD. Ordering:ALDA Castañeda MD
[2020-08-13 18:58] LABS: Bilirubin Negative (Negative); Blood Negative (Negative); Clarity Clear (Clear); Glucose Negative (Negative); Ketones Negative (Negative); Leukocyte Esterase Negative (Negative); Nitrite Negative (Negative); Specific Gravity >= 1.030 (1.005-1.025); Urobilinogen 0.2 EU/dL (Up TO 0.2); pH 5.5 (5-8)
[2020-08-13 19:01] LABS: *AMPHETAMINES SCREEN URINE Negative (Negative); *BARBITURATES SCREEN URINE Negative (Negative); *BENZODIAZEPINES SCREEN URINE Negative (Negative); Cannabinoids THC Negative (Negative); Cocaine Screen,Urine Negative (Negative); METHADONE URINE SCREEN Negative (Negative); OPIATES URINE SCREEN Negative (Negative)
[2020-08-13 19:15] LABS: Tricyclic Antidepressants POSITIVE (Negative)
[2020-08-13 19:42] LABS: BUN 27 mg/dL (7-18); CREATININE 2.03 mg/dL (0.55-1.02); Calcium 8.6 mg/dL (8.5-10.1); Chloride 104 mmol/L (98-107); Estimated GFR 24.74 (mL/min/1.73m2); Glucose 78 mg/dL (74-106); Potassium 3.9 mmol/L (3.5-5.1); Sodium 139 mmol/L (136-145)
== END 2020-08-13 20:24 | disposition home or self-care (01) ==
PROVIDERS: Physician Assistant; Emergency Provider Physician Assistant; PCP Family Medicine
DX: N17.8 Other acute kidney failure (principal); E86.0 Dehydration; R53.83 Other fatigue; I12.9 Hypertensive chronic kidney disease with stage 1 through stage 4 chronic kidney disease, or unspecified chronic kidney disease; I95.9 Hypotension, unspecified
CPT/HCPCS: 36415; 51701; 71250; 80048; 80053; 80307; 93005; 96360; 96361; 99285; 70450; 80320; 81003; 83735; 84484; 85025; 93010

== ENCOUNTER 2020-08-29 22:05 | Outpatient (REF) | payer MEDICAID, SELFPAY ==
[2020-08-29 21:02] LABS: Abs Immature Grans 0.02 10^3/uL (0.0-0.06); Absolute Basophil Count 0.04 10^3/uL (0.0-0.2); Absolute Eosinophil Count 0.49 10^3/uL (0.0-0.7); Absolute Lymphocyte Count 2.56 10^3/uL (1.2-3.4); Absolute Monocyte Count 0.53 10^3/uL (0.1-0.8); Absolute Neutrophil Count 5.58 10^3/uL (1.2-6.7); Basophils % 0.4; Eosinophils % 5.3; HCT 37.3 % (36.0-46.0); HGB 11.7 g/dL (11.2-15.7); Immature Grans % 0.2; Lymphocytes % 27.8; MCH 29.3 pg (27.0-33.0); MCHC 31.4 % (32.0-36.0); MCV 93.3 fL (80-95); Monocytes % 5.7; Neutrophils % 60.6; Nucleated RBC 0 %; RDW 14.5 % (11.7-14.6); RDW-SD 48.5 fL; WBC 9.22 10^3/uL (4.4-10.8)
[2020-08-29 21:47] LABS: Platelet Count 190 10^3/uL (130-400)
[2020-08-29 22:25] LABS: ALT 97 U/L (14-59); AST 38 U/L (15-37); Albumin 3.8 g/dL (3.4-5.0); Alkaline Phosphatase 180 U/L (46-116); Anion Gap 8.1 mmol/L (3-11); BUN 18 mg/dL (7-18); Bilirubin, Total 0.2 mg/dL (0.2-1.0); CO2 30.9 mmol/L (21.0-32.0); CREATININE 1.04 mg/dL (0.55-1.02); Calcium 8.9 mg/dL (8.5-10.1); Chloride 102 mmol/L (98-107); Estimated GFR 53.52 (mL/min/1.73m2); Glucose 101 mg/dL (74-106); Magnesium 2.3 mg/dL (1.8-2.4); Potassium 4.2 mmol/L (3.5-5.1); Sodium 141 mmol/L (136-145); Total Protein 6.6 g/dL (6.4-8.2)
== END 2020-08-29 22:25 ==
LOC: NCHCN 22:05
PROVIDERS: PCP Family Medicine; Visit Provider Family Medicine
DX: M25.511 Pain in right shoulder (principal)
CPT/HCPCS: 80053; 83735; 85025

== ENCOUNTER 2020-10-30 02:54 | Outpatient (CLI) | payer MEDICAID, SELFPAY ==
[2020-10-30 12:29] LABS: Bilirubin Negative (Negative); Blood Negative (Negative); Clarity Sl Cloudy (Clear); Glucose Negative (Negative); Ketones Negative (Negative); Leukocyte Esterase Trace (Negative); Nitrite Negative (Negative); pH 7.5 (5-8)
[2020-10-30 12:30] LABS: Abs Immature Grans 0.01 10^3/uL (0.0-0.06); Absolute Basophil Count 0.02 10^3/uL (0.0-0.2); Absolute Eosinophil Count 0.47 10^3/uL (0.0-0.7); Absolute Lymphocyte Count 2.84 10^3/uL (1.2-3.4); Absolute Monocyte Count 0.55 10^3/uL (0.1-0.8); Absolute Neutrophil Count 3.15 10^3/uL (1.2-6.7); Basophils % 0.3; Eosinophils % 6.7; HCT 37.7 % (36.0-46.0); HGB 11.2 g/dL (11.2-15.7); Immature Grans % 0.1; Lymphocytes % 40.3; MCH 28.3 pg (27.0-33.0); MCHC 29.7 % (32.0-36.0); MCV 95.2 fL (80-95); MPV 11.9 fL (8.0-11.0); Monocytes % 7.8; Neutrophils % 44.8; Nucleated RBC 0 %; Platelet Count 192 10^3/uL (130-400); RBC 3.96 10^6/uL (3.93-5.22); RDW 14.1 % (11.7-14.6); RDW-SD 48.8 fL; WBC 7.04 10^3/uL (4.4-10.8)
[2020-10-30 12:42] LABS: Bacteria Many HPF (Negative); C & S Indicated? Yes; Casts Negative LPF (Negative); Crystals Negative HPF (Negative); Epithelial Cells Few HPF (Negative); Mucus Negative (Negative); RBC 0-2 HPF (0-2)
[2020-10-30 13:46] LABS: ALT 93 U/L (14-59); AST 53 U/L (15-37); Albumin 3.6 g/dL (3.4-5.0); Alkaline Phosphatase 173 U/L (46-116); BUN 10 mg/dL (7-18); Bilirubin, Total 0.2 mg/dL (0.2-1.0); Calcium 9.1 mg/dL (8.5-10.1); Chloride 104 mmol/L (98-107); Glucose 97 mg/dL (74-106); Potassium 4.2 mmol/L (3.5-5.1); Sodium 144 mmol/L (136-145); Total Protein 6.3 g/dL (6.4-8.2)
== END 2020-10-30 02:55 | disposition home or self-care (01) ==
LOC: LBO 02:54
PROVIDERS: PCP Family Medicine; Visit Provider Internal Medicine Rheumatology
DX: M81.0 Age-related osteoporosis without current pathological fracture (principal); R33.9 Retention of urine, unspecified
CPT/HCPCS: 36415; 80053; 87077; 81003; 81015; 85025; 87086; 87186

== ENCOUNTER 2020-11-13 03:12 | Outpatient (CLI) | payer MEDICAID, SELFPAY ==
[2020-11-13 16:30] LABS: Bilirubin Negative (Negative); Blood Negative (Negative); Clarity Sl Cloudy (Clear); Glucose Negative (Negative); Ketones Negative (Negative); Leukocyte Esterase Trace (Negative); Nitrite Negative (Negative); Urobilinogen 0.2 EU/dL (Up TO 0.2); pH 8.5 (5-8)
[2020-11-13 16:45] LABS: Bacteria Many HPF (Negative); C & S Indicated? Yes; Casts Negative LPF (Negative); Crystals Negative HPF (Negative); Epithelial Cells Few HPF (Negative); Mucus Negative (Negative); RBC 0-2 HPF (0-2)
== END 2020-11-13 03:13 | disposition home or self-care (01) ==
LOC: LBO 03:12
PROVIDERS: PCP Family Medicine; Visit Provider Urology
DX: R33.9 Retention of urine, unspecified (principal)
CPT/HCPCS: 87077; 81003; 81015; 87086; 87186

== ENCOUNTER 2021-04-16 02:32 | Inpatient (IN) | payer MEDICAID, SELFPAY ==
[2021-04-16] VITALS (11 sets, daily range): BP systolic 125–156; BP diastolic 63–113; PULSE 54–112; RESP 18–20; TEMP 36.7–37.1; O2SAT 87–98
--- NOTE | 2021-04-16 02:30 | DI.CT_ITS ---
Exam(s) CT HEAD WO EXAM: CT HEAD WO CLINICAL HISTORY: confusion, altered. TECHNIQUE: Imaging Protocol: Axial computed tomography images with coronal and sagittal reformatted images were created and reviewed COMPARISON: CT CT HEAD WO from 08/13/2020 FINDINGS: There are no skull fractures. Again noted are large bilateral surgical defects in medial norwood of b oth maxillary sinuses. Small amount of layering fluid is noted in the posterior aspect of both maxil roma sinuses. There is opacification of the right sphenoid sinus and a small fluid level in the left sphenoid sinus. Frontal sinuses exhibit some mucosal thickening at the frontoethmoidal recesses. A lso some opacification of the ethmoid air cells. Mastoid air cells are clear. There is no evidence of intracranial hemorrhage, mass effect, or shift of midline structures. There are no extra-axial fluid collections. The ventricles are not enlarged or shifted and there is no blo od within the ventricular system nor within the basal cisterns. IMPRESSION: No acute intracranial findings on this noninfused CT scan of the brain. Evidence of previous paranasal sinus surgery is described above. However, there are small fluid leve ls in both maxillary sinuses evident consistent with sinusitis. Also findings as above in the spheno id sinuses. RADIATION DOSE DELIVERED: 762.14mGy.cm Total DLP DATA REPOSITORY: All CT scans at this facility are submitted to the National Radiology Data Registry (NRDR) Dose Index Registry (DIR) with the [employer] ([employer]). RADIATION OPTIMIZATION: All CT scans at this facility use at least one of these dose optimization te chniques: automated exposure control; mA and/or kV adjustment per patient size (includes targeted exa ms where dose is matched to clinical indication); or iterative reconstruction.
--- NOTE | 2021-04-16 02:45 | DI.RAD_ITS ---
Exam(s) XR CHEST 2V PA LATERAL EXAM: XR CHEST 2V PA LATERAL CLINICAL HISTORY: cough, eval for pneumonia. TECHNIQUE: 2D digital imaging was performed. COMPARISON: Prior chest x-ray May 2019 FINDINGS: Heart size is normal. The mediastinum is not widened. Platelike atelectasis in the right lung base. Left lung is clear. Right shoulder prosthesis noted IMPRESSION: There is subsegmental platelike atelectasis in the right lung base.No other pulmonary findings nor pl eural effusions. DATA REPOSITORY: RADIATION DOSE DELIVERED:
[2021-04-16 03:13] LABS: Abs Immature Grans 0.02 10^3/uL (0.0-0.06); Absolute Basophil Count 0.02 10^3/uL (0.0-0.2); Absolute Eosinophil Count 0.07 10^3/uL (0.0-0.7); Absolute Lymphocyte Count 1.54 10^3/uL (1.2-3.4); Absolute Monocyte Count 0.88 10^3/uL (0.1-0.8); Absolute Neutrophil Count 7.96 10^3/uL (1.2-6.7); Basophils % 0.2; Eosinophils % 0.7; HCT 38.6 % (36.0-46.0); HGB 12.2 g/dL (11.2-15.7); Immature Grans % 0.2; Lymphocytes % 14.7; MCH 28.8 pg (27.0-33.0); MCHC 31.6 % (32.0-36.0); MPV 11.7 fL (8.0-11.0); Monocytes % 8.4; Neutrophils % 75.8; Nucleated RBC 0 %; Platelet Count 193 10^3/uL (130-400); RBC 4.24 10^6/uL (3.93-5.22); RDW 14.4 % (11.7-14.6); RDW-SD 47.8 fL; WBC 10.49 10^3/uL (4.4-10.8)
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
[2021-04-16 03:23] LABS: Ammonia 12 umol/L (11-32)
[2021-04-16 03:24] LABS: Bilirubin Negative (Negative); Blood Trace-intact (Negative); Clarity Clear (Clear); Glucose Negative (Negative); Ketones Negative (Negative); Leukocyte Esterase Negative (Negative); Nitrite Negative (Negative); Specific Gravity 1.025 (1.005-1.025)
[2021-04-16 03:31] LABS: Salicylate < 2.8 mg/dL (<2.8)
[2021-04-16 03:32] LABS: Acetaminophen < 2 ug/mL (10-30)
[2021-04-16 03:34] LABS: Bacteria Negative HPF (Negative); C & S Indicated? No; Casts Negative LPF (Negative); Crystals Negative HPF (Negative); Epithelial Cells Negative HPF (Negative); Mucus Negative (Negative); RBC 0-2 HPF (0-2); WBC Negative HPF (0-5)
[2021-04-16 03:47] LABS: ALT 50 U/L (14-59); AST 72 U/L (15-37); Albumin 3.8 g/dL (3.4-5.0); Alkaline Phosphatase 155 U/L (46-116); Anion Gap 9.8 mmol/L (3-11); BUN 17 mg/dL (7-18); Bilirubin, Total 0.5 mg/dL (0.2-1.0); CO2 31.2 mmol/L (21.0-32.0); CREATININE 1.2 mg/dL (0.55-1.02); Calcium 8.7 mg/dL (8.5-10.1); Chloride 99 mmol/L (98-107); Estimated GFR 45.37 (mL/min/1.73m2); Glucose 108 mg/dL (74-106); Sodium 140 mmol/L (136-145); TSH (W/Ref FT4) 0.58 uIU/mL (0.36-3.74); Total Protein 7.1 g/dL (6.4-8.2)
[2021-04-16 03:49] LABS: Creatine Kinase 3367 U/L (26-192); ETHANOL BLOOD < 3.0 mg/dL (<3)
[2021-04-16 03:50] LABS: Potassium 2.8 mmol/L (3.5-5.1)
[2021-04-16 03:51] LABS: *AMPHETAMINES SCREEN URINE Negative (Negative); *BARBITURATES SCREEN URINE Negative (Negative); *BENZODIAZEPINES SCREEN URINE Negative (Negative); Cannabinoids THC Negative (Negative); Cocaine Screen,Urine Negative (Negative); METHADONE URINE SCREEN Negative (Negative); OPIATES URINE SCREEN Negative (Negative); Tricyclic Antidepressants Negative (Negative)
[2021-04-16] MEDS: Normal Saline 500 ML IV (04:30)
[2021-04-16 04:36] LABS: Source Nasal/Nares
--- NOTE | 2021-04-16 04:43 | DI.VRAD_ITS ---
PROCEDURE INFORMATION: Exam: XR Chest Exam date and time: 04/16/2021 3:01 AM Age: 65 years old Clinical indication: Other: Cough, eval for pneumonia TECHNIQUE: Imaging protocol: XR of the chest. Views: 2 views. COMPARISON: CT CHEST WO 08/13/2020 6:35 PM FINDINGS: Lungs: Unremarkable. No consolidation. Pleural spaces: Unremarkable. No pleural effusion. No pneumothorax. Heart/Mediastinum: Unremarkable. No cardiomegaly. Bones/joints: Right shoulder prosthesis. IMPRESSION: No acute finding. Dictated and Authenticated by: Erlin Waters MD. Ordering:CANDELARIA Rubio MD
--- NOTE | 2021-04-16 04:43 | DI.VRAD_ITS ---
PROCEDURE INFORMATION: Exam: CT Head Without Contrast Exam date and time: 04/16/2021 2:38 AM Age: 65 years old Clinical indication: Other: Confusion, altered TECHNIQUE: Imaging protocol: Computed tomography of the head without contrast. Radiation optimization: All CT scans at this facility use at least one of these dose optimization techniques: automated exposure control; mA and/or kV adjustment per patient size (includes targeted exams where dose is matched to clinical indication); or iterative reconstruction. COMPARISON: CT HEAD WO 08/13/2020 6:31 PM FINDINGS: Brain: Normal. No hemorrhage. Unremarkable white matter. No mass effect. Cerebral ventricles: No ventriculomegaly. Paranasal sinuses: Minimal secretions within the paranasal sinuses. Mastoid air cells: Visualized mastoid air cells are well aerated. Bones/joints: Unremarkable. No acute fracture. Soft tissues: Unremarkable. IMPRESSION: No acute intracranial findings. Dictated and Authenticated by: Erlin Waters MD. Ordering:CANDELARIA Rubio MD
[2021-04-16] MEDS: POTASSIUM CHLORIDE 20 MEQ/100 ML BAG 50 MEQ IVPB (04:44)
[2021-04-16] MEDS: Potassium Chloride 20 MEQ TABCR 40 MEQ PO (04:48)
[2021-04-16 05:08] LABS: Magnesium 1.8 mg/dL (1.8-2.4)
[2021-04-16 05:25] LABS: COVID-19 PCR Negative (Negative)
[2021-04-16] MEDS: Normal Saline 1,000 ML 200 ML IV (09:00)
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
--- NOTE | 2021-04-16 10:46 | NUR.NOTE ---
Mayra refused ALL AM medications. She stated they are not the right size or color as her home medications. She was educated that each manufacture has their own size and color. She also declined quinn insert. Bladder scan for 284. 350ml yellow, no odor urine via toilet. Mayra removed her Fentanyl patch and won't return to this nurse. He would like to leave AMA. Charge made aware.
[2021-04-16 10:48] LABS: Anion Gap 7.5 mmol/L (3-11); CO2 28.5 mmol/L (21.0-32.0); CREATININE 0.9 mg/dL (0.55-1.02); Calcium 8.4 mg/dL (8.5-10.1); Chloride 107 mmol/L (98-107); Potassium 3.5 mmol/L (3.5-5.1); Sodium 143 mmol/L (136-145)
[2021-04-16] MEDS: fentaNYL 75 MCG PATCH TD (11:03)
[2021-04-16] MEDS: LORazepam 2 MG/ML VIAL 0.5 MG IVP (11:15)
[2021-04-16 11:36] LABS: BUN 13 mg/dL (7-18); Glucose 113 mg/dL (74-106)
[2021-04-16 11:52] LABS: Creatine Kinase 3194 U/L (26-192)
[2021-04-16] MEDS: FLUoxetine 20 MG CAP 40 MG PO (12:32)
[2021-04-16] MEDS: Gabapentin 600 MG TAB 1200 MG PO ×2 (12:32→19:36)
[2021-04-16] MEDS: Hydroxychloroquine 200 MG TAB 300 MG PO (12:33)
[2021-04-16] MEDS: Potassium Chloride 10 MEQ CAPCR PO (12:33)
--- NOTE | 2021-04-16 13:32 | INITIAL_ITS ---
- If Service Date Differs Date of service: 04/16/21 Time of Service: 13:33 Care Management Initial Assess REASON FOR HOSPITALIZATION:: Altered Mental Status, Hypokalemia, Rhabdo PAST MEDICAL HISTORY/PAST SURGICAL HISTORY:: Anxiety. Arthralgia. Blood glucos e elevated. Chronic back pain. Cognitive deficits. Colon polyps. Degenerative arthritis of right shoulder region. Dental caries. GERD (gastroesophageal reflux disease). Goiter. H/O: hysterectomy. HTN (hypertension). Hyperlipidemia. IBS (irritable bowel syndrome). Menopause. Rotator cuff impingement syndrome. Smoker. Spinal stenosis. Tremor. High blood pressure, anxiety, arthritis, osteoporosis, cognitive disorder, mixed connective tissue disease, scoliosis, mood disorder, Raynaud's disease, Sjogren's disease, vasculitis, tremor of both hands, chronic back pain, status post bilateral femoral head cementing. Per PT DC note 01/28/21: She is able to complete all ADLs that she wishes, aside from strapping her bra behind her back and completing heavy lifting overhead. Realistically, she understands that she cannot complete these activities with a total shoulder. Surgical History . Colonoscopy - MAC (06/03/17) PREVIOUS FUNCTIONAL STATUS/SOCIAL/FAMILY SUPPORTS:: Mayra resides in [place] with her Estuardo and daughter Abeba. She is independent at baseline in the community. CURRENT FUNCTIONAL STATUS:: Mayra is advocating for leaving AMA, she is refusing medications and medical interventions including quinn, fentanyl and AM meds per RN. She has a one-on-one staff support due to behaviors. ADVANCE DIRECTIVES:: None on file at [facility]. Has patient been provided with info about the portal/API?: Yes Did the patient sign up for the portal?: No CODE STATUS:: Full Code INSURANCE COVERAGE / FINANCIAL ISSUES:: Medicaid CURRENT HOME/COMMUNITY SERVICES/EQUIPMENT:: None noted at this time. PRIMARY CARE PHYSICIAN:: Kathleen Banks POTENTIAL DISCHARGE NEEDS:: Evaluations for increased services and possible referrals, follow up appointment with PCP. PATIENT/FAMILY EDUCATION NEEDS:: Review discharge instructions, discuss Ask Me Three. ANTICIPATED BARRIERS TO DISCHARGE:: None identified at this time. TRANSPORTATION:: Via private vehicle with family. PLAN:: Mayra continues to be closely monitored and treated. Anticipate at this time she will be further evaluated for increased services in the home setting; [facility] RN CM to be discussed. She will follow up with her PCP and plan of care as prescribed. She will transport home via private vehicle with family.
[2021-04-16] MEDS: Normal Saline Flush 10 ML SYR IVP (23:46)
[2021-04-16] MEDS: LORazepam 2 MG/ML VIAL 1 MG IVP (23:46)
[2021-04-17] VITALS (8 sets, daily range): BP systolic 138–163; BP diastolic 74–97; PULSE 70–98; RESP 15–20; TEMP 36.7–37.4; O2SAT 94–97
--- NOTE | 2021-04-17 | DI.US_ITS ---
APPROVED REPORT EXAM: Comprehensive 2D, Doppler, and color-flow Echocardiogram Patient Location: In-Patient Room/Bed: 211 Online Marketing Analyst: Swati Calle RDCS (AE) Indications: ?CHF Other Information Study Quality: Adequate. Technically limited study due to body habitus, inability to position patient , uncooperative patient. Conclusion The left ventricle is normal in size and wall thickness. Estimated ejection fraction is 60 to 65%. Wall motion is normal Normal right ventricular size and systolic function Both atria are normal in size Mild mitral annular calcification, mild mitral regurgitation Normal tricuspid valve with trace to mild regurgitation. Estimated right ventricular systolic pressu re is 36 mmHg Wall motion Left Ventricle The left ventricle is normal size. The left ventricular systolic function is normal. The left ventric ular ejection fraction is within the normal range. There is normal left ventricular wall thickness. T here is normal LV segmental wall motion. There is no ventricular septal defect visualized. LVEF is 60 -65%. Right Ventricle The right ventricle is normal size. The right ventricular systolic function is normal. The RVSP is 35 .7mmHg. Atria The left atrium size is normal. The right atrium size is normal. The interatrial septum is intact wit h no evidence for an atrial septal defect. Aortic Valve The aortic valve is normal in structure. Aortic valve is trileaflet. There is no aortic valvular sten osis. No aortic regurgitation is present. Mitral Valve Mild mitral annular calcification. No evidence of mitral valve stenosis. Mild mitral regurgitation. Tricuspid Valve The tricuspid valve is normal in structure. There is no tricuspid valve stenosis. Trace to mild tricu spid regurgitation. Pulmonic Valve Pulmonic valve is not well visualized. There is no pulmonic valvular stenosis. There is no pulmonic v alvular regurgitation. Great Vessels The aortic root is normal in size. The ascending aorta is normal in size. Aortic arch is not well vis ualized. IVC is normal in size and collapses >50% with inspiration. Pericardium There is no pericardial effusion. 2D Dimensions IVSD d PLAX 1.00 cm F: 0.6-1.0 LV Vol A2C d MOD 54.6 mL LVPW d PLAX 1.00 cm F: 0.6 - 1.0 LV Vol A4C d MOD 89.8 mL LVID d PLAX 4.20 cm F: 3.8 - 5.2 LA vol/ BSA A2C s A-L 16.8 mL/m2 LVDs 2.95 cm F: 2.2 - 3.5 LA vol/ BSA A4C s A-L 30.5 mL/m2 Ao Root d 2.62 cm F: 2.7 - 3.3 LA Vol/ BSA Biplane s A-L 23.9 mL/m2 RA Area A4C 10.22 cm2 LA Area A4C s MOD 17.26 cm2 RA Vol/ BSA A4C s A-L 13.2 mL/m2 LA Area A2C s MOD 12.14 cm2 Ao Asc Diam d 2.90 cm F: 2.3 - 3.1 LV EF A4C MOD 56.8 % LV EF Teichholz 56.2 % LV EF A2C MOD 58.5 % LVEF (Hernandez's) 57.92 % F: 54 - 74 LV EF Biplane MOD 57.9 % LV Volume 56.61 mL F: 46 - 106 SV 41.03 mL LV Volume Index 33.89 mL/m2 F: 29 - 61 SV Index 24.56 mL/m2 LV Vol Biplane MOD 70.8 mL FS 29.05 % M-Mode TAPSE 2.75 cm (M/F) >1.7 LV Diastology MV E' medial 0.077 (>0.07 m/s) E/A Ratio 1.0 LV E/e MED 11.75 (<14) MV E Vmax 0.91 (0.4-1.3 m/s) MV E' lateral 0.094 (>0.1 m/s) MV A Vmax 0.95 (0.4-1.3 m/s) LV E/e LAT 9.60 (<14) MV E/A Ratio 0.93 MV E/E' medial 11.79 MV E/E' lateral 9.64 Aortic Valve LVOT Area 3.32 cm2 AoV Area Vmax 2.58 cm2 LVOT Vmax 0.84 m/s AoV Area/ BSA (Vmax) 1.54 cm2/m2 LVOT Mean Armani. 0.53 m/s REMEDIOS Mean Armani. 2.30 cm2 LVOT Peak Grad 2.8 mmHg REMEDIOS Mean Armani. Index 1.38 cm2/m2 LVOT Mean Grad 1.4 mmHg LVOT VTI 0.184 m LVOT Diam s 2.05 cm AoV Vmax 1.08 m/s Velocity Ratio 0.77 AoV Mean Armani. 0.77 m/s AoV Peak Grad 4.6 mmHg LVOT SV 60.98 mL AoV Mean Grad 2.6 mmHg AoV VTI 0.236 m AoV Area VTI 2.58 cm2 AoV Area/ BSA (VTI) 1.55 cm/m2 Mitral Valve MV DT 196 (160-240 msec) MR Vmax 6.01 m/s MV PHT 57 msec MR VTI 2.083 m MV Area PHT 3.87 cm2 MR Peak Grad 144.6 mmHg MV VTI 0.377 m MR Mean Grad 112.2 mmHg MV VTI Annulus 0.383 m MR PISA Radius 0.44 cm MV Area VTI 1.65 (4.0-6.0 cm2) MR EROA 0.07 cm2 MR Aliasing Velocity 0.35 m/s MR PISA 1.22 cm2 Pulmonary Valve PV Vmax 0.90 (0.5-1.5 m/s) RVOT Peak Gr. 1.93 mmHg PV Peak Grad 3.2 mmHg RVOT Mean Gr. 1.05 mmHg PV Mean Grad 1.9 mmHg RVOT VTI 0.171 m PV VTI 0.178 m RVOT Vmax 0.69 m/s Tricuspid Valve TR Peak Grad 32.7 mmHg TR Vmax 2.86 m/s RA Pressure 3.00 mmHg RVSP (TR) 35.7 mmHg
--- NOTE | 2021-04-17 | DI.RAD_ITS ---
Exam(s) XR PORTABLE CHEST AP EXAM: XR PORTABLE CHEST AP CLINICAL HISTORY: new wheezing/shortness of breath/cough TECHNIQUE: 2D digital imaging was performed. COMPARISON: CR,XR XR CHEST 2V PA LATERAL from 04/16/2021 CR,XR XR CHEST 2V PA LATERAL from 04/16/2021 FINDINGS: MEDIASTINUM: Normal. HEART: Normal. PULMONARY VASCULATURE: Normal. LUNGS: Clear. PLEURAL SPACE: No pleural effusion or pneumothorax. BONE:Within normal limits for the patient's age. The patient has a right shoulder replacement. OTHER FINDINGS:Normal. IMPRESSION: No acute pulmonary findings. DATA REPOSITORY: RADIATION DOSE DELIVERED:
[2021-04-17 07:55] LABS: Anion Gap 7.2 mmol/L (3-11); BUN 9 mg/dL (7-18); CO2 28.8 mmol/L (21.0-32.0); CREATININE 0.8 mg/dL (0.55-1.02); Chloride 109 mmol/L (98-107); Glucose 68 mg/dL (74-106); Potassium 4.1 mmol/L (3.5-5.1); Sodium 145 mmol/L (136-145)
[2021-04-17 07:58] LABS: Creatine Kinase 2296 U/L (26-192)
[2021-04-17] MEDS: Furosemide 20 MG/2 ML VIAL IVP (09:33)
[2021-04-17] MEDS: FLUoxetine 20 MG CAP 40 MG PO (09:34)
[2021-04-17] MEDS: Omeprazole 20 MG CAPCR PO (09:34)
[2021-04-17] MEDS: Potassium Chloride 10 MEQ CAPCR PO (09:34)
[2021-04-17] MEDS: Gabapentin 600 MG TAB 1200 MG PO ×3 (09:34→21:12)
[2021-04-17] MEDS: Hydroxychloroquine 200 MG TAB 300 MG PO (09:34)
[2021-04-17] MEDS: DEXTROSE 5%-0.9% SALINE 1,000 ML 150 ML IV (11:45)
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
[2021-04-17 16:22] LABS: C-Reactive Protein 10.85 mg/dL (0.0-0.3)
--- NOTE | 2021-04-17 16:23 | PDOC.CMPRO ---
Care Management Progress Note S/O: Mayra was sitting in her chair, staff support beside her, watching television. She was open to meeting with Dr. Fitzgerald and presenting much more stable today. CM continues to follow. A: 65 year old female admitted to [facility] [address] for Altered Mental Status, Hypokalemia, Rhabdo P: Mayra continues to be closely monitored and supported. She continues to require one-on-one support. She met with Dr. Fitzgerald today; Psychiatric consult awaiting recommendations; please refer to his note. Anticipate she will be trialled on new medications, treated for rhabdo over the weekend and placement determination will resume on Tuesday.
[2021-04-17 19:33] LABS: HCT 34.3 % (36.0-46.0); HGB 10.5 g/dL (11.2-15.7); MCH 28.8 pg (27.0-33.0); MCHC 30.6 % (32.0-36.0); MCV 94.2 fL (80-95); MPV 11.8 fL (8.0-11.0); Platelet Count 162 10^3/uL (130-400); RBC 3.64 10^6/uL (3.93-5.22); RDW 14.8 % (11.7-14.6); RDW-SD 51.4 fL; WBC 8.66 10^3/uL (4.4-10.8)
[2021-04-17] MEDS: OLANZapine 5 MG TAB PO (21:12)
[2021-04-18] VITALS (7 sets, daily range): BP systolic 100–182; BP diastolic 52–96; PULSE 67–87; RESP 16–19; TEMP 36.4–36.7; O2SAT 92–97
[2021-04-18] MEDS: DEXTROSE 5%-0.9% SALINE 1,000 ML 150 ML IV (03:04)
[2021-04-18 07:24] LABS: Anion Gap 6.9 mmol/L (3-11); BUN 5 mg/dL (7-18); CO2 27.1 mmol/L (21.0-32.0); CREATININE 0.8 mg/dL (0.55-1.02); Calcium 8.4 mg/dL (8.5-10.1); Chloride 111 mmol/L (98-107); Creatine Kinase 897 U/L (26-192); Glucose 106 mg/dL (74-106); Potassium 3.8 mmol/L (3.5-5.1); Sodium 145 mmol/L (136-145)
[2021-04-18] MEDS: Hydroxychloroquine 200 MG TAB 300 MG PO (08:18)
[2021-04-18] MEDS: Omeprazole 20 MG CAPCR PO (08:18)
[2021-04-18] MEDS: FLUoxetine 20 MG CAP PO (08:19)
[2021-04-18] MEDS: OLANZapine 5 MG TAB PO (08:19)
[2021-04-18] MEDS: Potassium Chloride 10 MEQ CAPCR PO (08:19)
[2021-04-18] MEDS: Gabapentin 600 MG TAB 1200 MG PO ×3 (08:19→19:59)
[2021-04-18 14:43] LABS: Myoglobin, U 20 mcg/L (<=65)
--- NOTE | 2021-04-18 15:06 | W.PM.PROGNOT ---
Date of Service Date of service: 04/18/21 Time of Service: 15:06 Assessment and Plan Assessment and plan (1) Rhabdomyolysis: Status: Resolved Assessment and plan: Presumably due to patient's immobility for a prolonged period of time. Seizure is a consideration - EEG pending. No convulsive events observed here so far. However, due to patient's diagnosis of unspecified connective tissue disease, autoimmune myopathy does need to be considered. We are getting records from the patient's director critical care to see if this has been a feature of her disease. Check CRP. The patient is not currently on steroids. CK down to 897. Patient refusing further iv's. I have dc'ed her iv fluids. Qualifiers: Rhabdomyolysis type: non-traumatic Qualified Code(s): M62.82 - Rhabdomyolysis (2) Acute alteration in mental status: Status: Acute Assessment and plan: Ddx: Bipolar d/o with what appeared to be a manic episode, seizure and post-ictal state vs side effect of medication or an alternative reason for alternating agitated delirium and sedation. Await psychiatry consult results. (3) Acute dehydration: Status: Resolved Assessment and plan: patient taking adequate oral intake and her BUN and creatinine are down to 5 and 0.8. iv fluids discontinued (4) Acute hypokalemia: Status: Resolved Assessment and plan: resolved. Potassium now 3.8 and was 4.1 yesterday. Patient remains on low dose oral supplementation of 10 meq daily. (5) DVT prophylaxis: Status: Acute Assessment and plan: Sc lovenox (6) Discharge planning issues: Status: Acute Assessment and plan: Full code COntinues to require hospitalization. ?Ray of hope on discharge? Patient is threatening to leave [facility] While she still is in a manic phase despite starting on olanzapine yesterday, I do not feel she does not have capacity to understand her choices whether or not to remain and receive psychiatric help or not. She has indicated that she is going to leave. I do not feel that I can qualify her for EE hold. She is not suicidal nor has she expressed any homicidal ideation even though she is unhappy w/ her . Subjective Subjective Interval history since last seen: Patient remains manic w/tangential thinking and paranoid ideation. She is convinced that her just wants her overmedicated. She feels that she does not need medications for her labile moods and manic behavior. 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 Exam Narrative Exam Narrative: Patient is agitated, tangential thinking, paranoid w/ psychomotor excitement w/ rapid gesturing w/ her arms/hands, rapid pressured speech and blaming her for wanting her on medications. Objective Last Vital Signs Temp 36.6 C 04/18/21 08:16 Pulse 78 04/18/21 08:16 Resp 18 04/18/21 08:16 BP 170/96 H 04/18/21 08:16 Pulse Ox 97 04/18/21 08:16 Laboratory Results - last 24 hr 04/17/21 04/17/21 04/18/21 06:44 19:27 05:35 WBC 8.66 Cancelled RBC 3.64 L Cancelled Hgb 10.5 L Cancelled Hct 34.3 L Cancelled MCV 94.2 Cancelled MCH 28.8 Cancelled MCHC 30.6 L Cancelled RDW 14.8 H Cancelled Plt Count 162 Cancelled MPV 11.8 H Cancelled Immature Gran % Cancelled Neutrophils % Cancelled Band Neutrophils % Cancelled Lymphocytes % Cancelled Atypical Lymphs % Cancelled Monocytes % Cancelled Eosinophils % Cancelled Basophils % Cancelled Metamyelocytes % Cancelled Myelocytes % Cancelled Promyelocytes % Cancelled Other Cells % Cancelled Nucleated RBC % Cancelled Absolute Neutrophils Cancelled Absolute Lymphocytes Cancelled Absolute Monocytes Cancelled Absolute Eosinophils Cancelled Absolute Basophils Cancelled RBC Morphology Cancelled Polychromasia Cancelled Hypochromasia Cancelled Poikilocytosis Cancelled Basophilic Stippling Cancelled Anisocytosis Cancelled Microcytosis Cancelled Macrocytosis Cancelled Spherocytes Cancelled Tear Drop Cells Cancelled Ovalocytes Cancelled Stomatocytes Cancelled [place] Bodies Cancelled Henderson Cells/Echinocytes Cancelled Acanthocytes (Spur) Cancelled Schistocytes Cancelled Sodium Potassium Chloride Carbon Dioxide Anion Gap BUN Creatinine Estimated GFR/1.73 m2 Glucose Calcium Magnesium Creatine Kinase C-Reactive Protein 10.85 H 04/18/21 06:26 WBC RBC Hgb Hct MCV MCH MCHC RDW Plt Count MPV Immature Gran % Neutrophils % Band Neutrophils % Lymphocytes % Atypical Lymphs % Monocytes % Eosinophils % Basophils % Metamyelocytes % Myelocytes % Promyelocytes % Other Cells % Nucleated RBC % Absolute Neutrophils Absolute Lymphocytes Absolute Monocytes Absolute Eosinophils Absolute Basophils RBC Morphology Polychromasia Hypochromasia Poikilocytosis Basophilic Stippling Anisocytosis Microcytosis Macrocytosis Spherocytes Tear Drop Cells Ovalocytes Stomatocytes [place] Bodies Lila Cells/Echinocytes Acanthocytes (Spur) Schistocytes Sodium 145 Potassium 3.8 Chloride 111 H Carbon Dioxide 27.1 Anion Gap 6.9 BUN 5 L Creatinine 0.8 Estimated GFR/1.73 m2 >= 60.00 Glucose 106 Calcium 8.4 L Magnesium 2.0 Creatine Kinase 897 H C-Reactive Protein
[2021-04-19 02:47] VITALS: BP 168/75; PULSE 86; RESP 19; TEMP 36.7; O2SAT 97
[2021-04-19 07:41] LABS: Abs Immature Grans 0.02 10^3/uL (0.0-0.06); Absolute Basophil Count 0.02 10^3/uL (0.0-0.2); Absolute Eosinophil Count 0.28 10^3/uL (0.0-0.7); Absolute Lymphocyte Count 1.82 10^3/uL (1.2-3.4); Absolute Monocyte Count 0.53 10^3/uL (0.1-0.8); Absolute Neutrophil Count 4.63 10^3/uL (1.2-6.7); Basophils % 0.3; Eosinophils % 3.8; HCT 38.1 % (36.0-46.0); HGB 11.9 g/dL (11.2-15.7); Immature Grans % 0.3; Lymphocytes % 24.9; MCHC 31.2 % (32.0-36.0); MCV 92.7 fL (80-95); MPV 11.9 fL (8.0-11.0); Monocytes % 7.3; Neutrophils % 63.4; Nucleated RBC 0 %; Platelet Count 188 10^3/uL (130-400); RBC 4.11 10^6/uL (3.93-5.22); RDW 14.5 % (11.7-14.6); RDW-SD 48.8 fL
[2021-04-19] MEDS: FLUoxetine 20 MG CAP PO (08:47)
[2021-04-19] MEDS: Omeprazole 20 MG CAPCR PO (08:47)
[2021-04-19] MEDS: Potassium Chloride 10 MEQ CAPCR PO (08:47)
[2021-04-19] MEDS: Hydroxychloroquine 200 MG TAB 300 MG PO (08:47)
[2021-04-19] MEDS: OLANZapine 5 MG TAB 15 MG PO (08:47)
[2021-04-19] MEDS: Gabapentin 600 MG TAB 1200 MG PO ×3 (09:36→20:06)
[2021-04-19] MEDS: fentaNYL 75 MCG PATCH TD (10:12)
[2021-04-19 10:29] VITALS: BP 162/98; PULSE 75; RESP 19; TEMP 37; O2SAT 96
[2021-04-19 11:30] VITALS: BP 162/97; PULSE 72; RESP 19; TEMP 36.7; O2SAT 95
[2021-04-19 15:30] VITALS: BP 174/94; PULSE 67; RESP 18; TEMP 36.8; O2SAT 98
--- NOTE | 2021-04-19 17:04 | PGE_ITS ---
Date of Service Date of service: 04/19/21 Time of Service: 17:04 Assessment and Plan Assessment and plan (1) Rhabdomyolysis: Status: Resolved Assessment and plan: resolved. iv fluids dc'ed yesterday. No further labs. I suspect was d/t her being down on her floor for prolonged period. Seizure has not been ruled out however, she has exhibited no seizure activity since admissio n and has no history of seizures. Qualifiers: Rhabdomyolysis type: non-traumatic Qualified Code(s): M62.82 - Rhabdomyolysis (2) Acute alteration in mental status: Status: Acute Assessment and plan: Tele psychiatry consult was obtained last Tuesday and patient was put on Olanzapine which I have escalated over the weekend to 15 mg daily. She is alert and oriented and she seems to be congnitively intact and can reason well although her insight I software test analyst to be only fair. She still has paranoid thoughts and she is tangential in her conversations. I think that she may be at her baseline. I will request follow up tele psychiatry on Tuesday but unless the patient is willing to go to a geriatric psychiatry facility I think she will have to be discharged home for outpatient psychiatry follow up. She is not suicidal nor homicidal therefore no indication for emergency hospitalization. (3) Acute dehydration: Status: Resolved Assessment and plan: patient taking adequate oral intake and her BUN and creatinine are down to 5 and 0.8. iv fluids discontinued yesterday (4) Acute hypokalemia: Status: Resolved Assessment and plan: resolved. Potassium now 3.8 and was 4.1 yesterday. Patient remains on low dose oral supplementation of 10 meq daily. (5) DVT prophylaxis: Status: Acute Assessment and plan: Sc lovenox (6) Discharge planning issues: Status: Acute Assessment and plan: Full code Unless she is willing to go voluntarily to geriatric psychiatry facility I think she will be discharged tomorrow to home for outpatient follow up. Subjective Subjective Interval history since last seen: Patient took her meds today. More cooperative w/ nursing. Walked around the nursing unit and took a shower today. She is still confabulating and very tangential in her thinking and still has trouble staying focused on questions she is asked and will get off track. Exam Narrative Exam Narrative: Patient remains tangential in her thought processes, still does not focus and stay on subject but she is calmer today and more cooperative. She has no acute complaints. Per George her nurse, she did well w/ walking today and took a shower. Objective Last Vital Signs Temp 37 C 04/19/21 10:29 Pulse 75 04/19/21 10:29 Resp 19 04/19/21 10:29 BP 162/98 H 04/19/21 10:29 Pulse Ox 96 04/19/21 10:29 Laboratory Results - last 24 hr 04/16/21 04/19/21 10:45 07:20 WBC 7.30 RBC 4.11 Hgb 11.9 Hct 38.1 MCV 92.7 MCH 29.0 MCHC 31.2 L RDW 14.5 Plt Count 188 MPV 11.9 H Immature Gran % 0.3 Neutrophils % 63.4 Lymphocytes % 24.9 Monocytes % 7.3 Eosinophils % 3.8 Basophils % 0.3 Nucleated RBC % 0 Absolute Neutrophils 4.63 Absolute Lymphocytes 1.82 Absolute Monocytes 0.53 Absolute Eosinophils 0.28 Absolute Basophils 0.02 Urine Myoglobin 20
[2021-04-19] MEDS: Acetaminophen 500 MG TAB 1000 MG PO (20:06)
[2021-04-19 20:36] VITALS: BP 175/99; PULSE 78; RESP 19; TEMP 36.6; O2SAT 95
[2021-04-19 23:14] VITALS: BP 133/79; PULSE 70; RESP 17; TEMP 35.9; O2SAT 95
[2021-04-20 07:30] VITALS: BP 172/83; PULSE 73; RESP 19; TEMP 36.8; O2SAT 95
[2021-04-20] MEDS: Hydroxychloroquine 200 MG TAB 300 MG PO (08:12)
[2021-04-20] MEDS: Omeprazole 20 MG CAPCR PO (08:12)
[2021-04-20] MEDS: OLANZapine 5 MG TAB 15 MG PO (08:13)
[2021-04-20] MEDS: FLUoxetine 20 MG CAP PO (08:13)
[2021-04-20] MEDS: Potassium Chloride 10 MEQ CAPCR PO (08:13)
[2021-04-20] MEDS: Gabapentin 600 MG TAB 1200 MG PO ×2 (09:56→13:58)
--- NOTE | 2021-04-20 10:57 | PDOC.EEG ---
Neurology EEG EEG: [facility] Department of Neurology INPATIENT EEG REPORT Date of Recordin04/16/21 Interpreting Physician: Dr. Mitra Appiah Reason for study: Ms. Don is a 65 year-old woman admitted with altered mental status concerning for post-ictal state. Current Medications: Current Medications Acetaminophen (Acetaminophen 500 Mg Tab) 1,000 mg PO Q6H PRN PRN Last Admin: 04/19/21 20:06 Dose: 1,000 mg Documented by: Albuterol Sulfate (Albuterol 2.5 Mg/3 Ml Inh Soln Vial) 2.5 mg UPD Q4H PRN PRN Enoxaparin Sodium (Enoxaparin 40 Mg/0.4 Ml Syr) 40 mg SC DAILY [facility] Last Admin: 04/20/21 08:13 Dose: Not Given Documented by: Fentanyl (Fentanyl 75 Mcg Patch) 75 mcg TD Q72H [facility] Last Admin: 04/19/21 10:12 Dose: 75 mcg Documented by: Fluoxetine HCl (Fluoxetine 20 Mg Cap) 20 mg PO DAILY [facility] Last Admin: 04/20/21 08:13 Dose: 20 mg Documented by: Gabapentin (Gabapentin 600 Mg Tab) 1,200 mg PO TID [facility] Last Admin: 04/20/21 09:56 Dose: 1,200 mg Documented by: Hydroxychloroquine Sulfate (Hydroxychloroquine 200 Mg Tab) 300 mg PO DAILY [facility] Last Admin: 04/20/21 08:12 Dose: 300 mg Documented by: Lorazepam (Lorazepam 1 Mg Tab) 1 mg PO Q4H PRN PRN PRN Reason: AGITATION Olanzapine (Olanzapine 5 Mg Tab) 15 mg PO DAILY [facility] Last Admin: 04/20/21 08:13 Dose: 15 mg Documented by: Omeprazole (Omeprazole 20 Mg Capcr) 20 mg PO DAILY@0730 [facility] Last Admin: 04/20/21 08:12 Dose: 20 mg Documented by: Potassium Chloride (Potassium Chloride 10 Meq Capcr) 10 meq PO DAILY [facility] Last Admin: 04/20/21 08:13 Dose: 10 meq Documented by: METHODS: A 21 channel digitized electroencephalogram was performed in the [facility] Med/Surg Floor or ICU. The 10/20 international system of electrode placement was used and bipolar and referential electrode montages were recorded. In addition to EEG the patient was monitored for EKG and lateral/vertical eye movements. Activation procedures of photic stimulation and hyperventilation were performed if applicable. Video was used during activation procedures and during events where applicable. The duration of the recording was 30 minutes. DESCRIPTION OF EEG: The patient was noted to be awake only during the recording. During maximal wakefulness a 9-Hz posterior background rhythm was present which was well-modulated, symmetrical, reactive to eye opening, and of moderate voltage. With eye opening the background activity changed to a low voltage mixture of alpha, beta, and occasional theta range frequencies. Faster frequencies were present in the bilateral anterior head regions. There was a normal anterior-posterior voltage gradient. No drowsiness or stage II sleep was recorded. Activating Procedures: Photic stimulation was performed which produced a symmetrical posterior driving response at various flash frequencies. Hyperventilation was not performed. EKG: EKG revealed normal sinus rhythm. INTERPRETATION: This EEG is normal during the awake state as well as during photic stimulation. PRIOR EEG: none CLINICAL CORRELATION: No focal regions of cerebral dysfunction or epileptiform activity was present. No sleep was recorded during the study which reduces the sensitivity of the exam. If seizure remains a part of the differential, consider a repeat sleep-deprived EEG or overnight ambulatory EEG. Mitra Appiah MD
[2021-04-20 11:30] VITALS: BP 128/73; PULSE 66; RESP 18; TEMP 36.5; O2SAT 94
--- NOTE | 2021-04-20 12:40 | PDOC.HHF2F ---
Home Health Certification Home Health Certification: 1. Encounter Date and Reason I certify that Mayra Don was seen by Abhilash Campo on 04/20/21 and that I had a [id number] encounter with this patient that meets the physician face to face encounter requirements. 2. Clinical Findings Supporting Skilled Need and Homebound Status I certify that home health services are medically necessary, include either intermittent nursing home and/or physical/speech therapy, and that this patient is homebound in that absences from the home require considerable and taxing effort and are infrequent or of short duration, or are attributable to the need to receive medical care. [X] (a) Attached documentation from encounter provides clinical findings supporting skilled need and homebound status (including what assistance patient requires to leave the home). The encounter with the patient was in whole, or in part, for the following medical condition, which is the primary reason for home health care: Altered Mental Status,Hypokalemia,Rhabdo Jail: visting nurse to perform medication monitoring and follow up psychiatric/behaviorial monitoring to assess patient's improvement in her manic behavior. Coordinate w/ PCP and behaviorial health specialists ([facility]) patient's medications. Physical Therapy: Speech Therapy: Homebound: patient's manic behavior places undo risk for patient to seek outpatient services at this time 3. Certification and Authentication I certify that I composed the above information based on my clinical judgement relating to this patient's medical condition and, if applicable, clinical findings communicated to me by the NPP or inpatient physician who performed the Home Health Referral. All further orders will be obtained through ____Dr. Kathleen Banks (Community Based Physician - PCP)
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
--- NOTE | 2021-04-20 13:11 | CMDISCH_ITS ---
- If Service Date Differs Date of service: 04/20/21 Time of Service: 13:54 LACE Index Scoring Tool - Questions: Length of Stay (in days): 3 Acuity (Admit via E.D.?): Yes E.D. Visits: 2 - Answers: Total Score: 8 Risk of Readmission: Low Risk Care Management Discharge Reason for Hospitalization: Altered Mental Status, Hypokalemia, Rhabdo Discharge Plan: Per MD, Mayra is now stable on her medications and is discharge ready to return home. CM spoke with daughters Abeba and Nelson re: discharge plan. CM faxed referral to [facility] intake: attn: Bee Delaney per [facility] recommendation. completed orders for [facility] RN supports as well. Mayra will transport via private vehicle with [facility], follow up with her PCP and plan of care as prescribed. Patient/Family Education Needs: Review discharge recommendations, discuss self care needs upon discharge. Services Needed at Discharge: DME Agency ([facility]: RN ) - MH Services (Omit if N/A) Current MH Services: [facility] (Referral completed per Psych Consult Dr. Fitzgerald recommendations.)
== END 2021-04-20 15:25 | disposition home health service (06) | DRG 558 ==
LOC: ER 05:59 → MS 06:02
PROVIDERS: Internal Medicine; Admitting Provider Internal Medicine; Emergency Provider Student in an Organized Health Care Education/Training Program; PCP Family Medicine; Visit Provider Internal Medicine
DX: M62.82 Rhabdomyolysis (principal); R41.82 Altered mental status, unspecified; E86.0 Dehydration; E87.6 Hypokalemia; Z20.822 Contact with and (suspected) exposure to COVID-19; F03.90 Unspecified dementia, unspecified severity, without behavioral disturbance, psychotic disturbance, mood disturbance, and anxiety; R45.1 Restlessness and agitation; F41.9 Anxiety disorder, unspecified; G89.29 Other chronic pain; M54.9 Dorsalgia, unspecified; K21.9 Gastro-esophageal reflux disease without esophagitis; I10 Essential (primary) hypertension; E78.5 Hyperlipidemia, unspecified; F17.210 Nicotine dependence, cigarettes, uncomplicated; M48.00 Spinal stenosis, site unspecified; R25.1 Tremor, unspecified; E04.9 Nontoxic goiter, unspecified; K02.9 Dental caries, unspecified; K58.9 Irritable bowel syndrome, unspecified; F30.8 Other manic episodes; T40.415A Adverse effect of fentanyl or fentanyl analogs, initial encounter; T42.6X5A Adverse effect of other antiepileptic and sedative-hypnotic drugs, initial encounter; T42.4X5A Adverse effect of benzodiazepines, initial encounter
CPT/HCPCS: 36415; 51701; 80048; 80053; 80307; 82550; 85027; 87635; 96361; 96365; 99285; 70450; 71045; 71046; 80320; 80329; 81003; 81015; 82140; 83735; 83874; 84443; 85025; 86140; 93306; 95816; 99220; 99226; 99231; 99232; 99239; G0378; J1941; J2060; J3480; J7042

== ENCOUNTER 2021-05-03 17:54 | Emergency (ER) | payer MEDICAID, SELFPAY ==
[2021-05-03] VITALS (19 sets, daily range): BP systolic 102–120; BP diastolic 59–88; PULSE 70–97; RESP 11–30; TEMP 36.6; O2SAT 92–97
--- NOTE | 2021-05-03 17:45 | RT.EKG_ITS ---
APPROVED REPORT Exam: Resting ECG Reason for Exam: LOC Patient Location: E HR:89 bpm ECG Measurements Heart Rate 89 AXIS NC 152 P 42 QRSd 92 QRS 41 QT 374 T 90 QTc 455 Conclusion Sinus rhythm...normal P axis, V-rate 60- 99 Nonspecific T abnrm, anterolateral leads...T <-0.10mV, I aVL V2-V6
--- NOTE | 2021-05-03 18:45 | DI.CT_ITS ---
Exam(s) CT HEAD WO EXAM: CT HEAD WO CLINICAL HISTORY: weakness/ams. TECHNIQUE: Imaging Protocol: Axial computed tomography images with coronal and sagittal reformatted images were created and reviewed COMPARISON: CT CT HEAD WO from 04/16/2021 FINDINGS: There are no skull fractures. Again noted are large surgical defects in the medial [place] of both ma xillary sinuses. Small fluid levels are again noted in both maxillary sinuses. Also fluid fluid-muc osal thickening in the ethmoidal air cells bilaterally. Mucosal thickening in the right sphenoid sin us. Left sphenoid sinus is clear as are the frontal sinuses. The mastoid air cells are well aerated . There is no evidence of intracranial hemorrhage, mass effect, or shift of midline structures. There are no extra-axial fluid collections. The ventricles are not enlarged or shifted and there is no blo od within the ventricular system nor within the basal cisterns. There is calcification noted in the intracavernous internal carotid arteries bilaterally as well as i n the left vertebral artery at the skull base IMPRESSION: No acute intracranial findings on this noninfused CT scan of the brain. Evidence of previous bilateral endoscopic sinus surgery again noted. However, there are small fluid levels in both maxillary sinuses again noted as well as mucosal thickening in the right sphenoid sinu s and numerous ethmoidal air cells bilaterally. There is sparing of the frontal sinuses. RADIATION DOSE DELIVERED: 719.95mGy.cm Total DLP DATA REPOSITORY: All CT scans at this facility are submitted to the National Radiology Data Registry (NRDR) Dose Index Registry (DIR) with the [employer] (ACR). RADIATION OPTIMIZATION: All CT scans at this facility use at least one of these dose optimization te chniques: automated exposure control; mA and/or kV adjustment per patient size (includes targeted exa ms where dose is matched to clinical indication); or iterative reconstruction.
[2021-05-03 19:05] LABS: Abs Immature Grans 0.01 10^3/uL (0.0-0.06); Absolute Basophil Count 0.02 10^3/uL (0.0-0.2); Absolute Eosinophil Count 0.22 10^3/uL (0.0-0.7); Absolute Lymphocyte Count 1.97 10^3/uL (1.2-3.4); Absolute Monocyte Count 0.32 10^3/uL (0.1-0.8); Absolute Neutrophil Count 6.64 10^3/uL (1.2-6.7); Basophils % 0.2; Eosinophils % 2.4; HCT 42.8 % (36.0-46.0); HGB 12.6 g/dL (11.2-15.7); Immature Grans % 0.1; Lactate 1.6 mmol/L (0.6-1.4); Lymphocytes % 21.5; MCH 27.9 pg (27.0-33.0); MCHC 29.4 % (32.0-36.0); MCV 94.9 fL (80-95); MPV 12.7 fL (8.0-11.0); Monocytes % 3.5; Neutrophils % 72.3; Nucleated RBC 0 %; Platelet Count 221 10^3/uL (130-400); RBC 4.51 10^6/uL (3.93-5.22); RDW 14.6 % (11.7-14.6); RDW-SD 50.9 fL; WBC 9.18 10^3/uL (4.4-10.8)
[2021-05-03] MEDS: Normal Saline 1,000 ML 1000 ML IV (19:15)
[2021-05-03 19:24] LABS: Bilirubin Negative (Negative); Blood Negative (Negative); Clarity Clear (Clear); Glucose Negative (Negative); Ketones Negative (Negative); Leukocyte Esterase Negative (Negative); Nitrite Negative (Negative); Specific Gravity >= 1.030 (1.005-1.025); Urobilinogen 0.2 EU/dL (Up TO 0.2); pH 5.5 (5-8)
[2021-05-03 19:32] LABS: ALT 58 U/L (14-59); AST 88 U/L (15-37); Albumin 3.6 g/dL (3.4-5.0); Alkaline Phosphatase 160 U/L (46-116); Anion Gap 4.3 mmol/L (3-11); BUN 16 mg/dL (7-18); Bilirubin, Total 0.3 mg/dL (0.2-1.0); CO2 33.7 mmol/L (21.0-32.0); CREATININE 1.4 mg/dL (0.55-1.02); Calcium 9.3 mg/dL (8.5-10.1); Chloride 106 mmol/L (98-107); ETHANOL BLOOD < 3.0 mg/dL (<3); Estimated GFR 37.98 (mL/min/1.73m2); Glucose 101 mg/dL (74-106); Magnesium 2.3 mg/dL (1.8-2.4); Potassium 4.1 mmol/L (3.5-5.1); Sodium 144 mmol/L (136-145); TSH 0.58 uIU/mL (0.36-3.74); Total Protein 6.9 g/dL (6.4-8.2); Troponin I < 0.05 ng/mL (<0.06)
[2021-05-03 19:33] LABS: Creatine Kinase 3024 U/L (26-192)
[2021-05-03 19:34] LABS: *AMPHETAMINES SCREEN URINE Negative (Negative); *BARBITURATES SCREEN URINE Negative (Negative); *BENZODIAZEPINES SCREEN URINE Negative (Negative); Cannabinoids THC Negative (Negative); Cocaine Screen,Urine Negative (Negative); METHADONE URINE SCREEN Negative (Negative); OPIATES URINE SCREEN Negative (Negative)
[2021-05-03 19:35] LABS: Tricyclic Antidepressants Negative (Negative)
--- NOTE | 2021-05-03 19:53 | DI.RAD_ITS ---
Exam(s) XR CHEST 2V PA LATERAL EXAM: XR CHEST 2V PA LATERAL CLINICAL HISTORY: weakness, ams. TECHNIQUE: 2D digital imaging was performed. COMPARISON: CR XR PORTABLE CHEST AP from 04/17/2021 FINDINGS: Heart size is normal. The mediastinum is not widened. There are infiltrates in both lung bases. Mild elevation of the right hemidiaphragm noted. Right sh oulder prosthesis evident. Moderate degenerative changes in the left shoulder. IMPRESSION: Bilateral lung base infiltrates. Elevated right hemidiaphragm.No obvious pleural effusions. This study 1st read by [facility]. Final report called by myself to the ER physician Tuesday05/04/2021 at 7:59 a.m. DATA REPOSITORY: RADIATION DOSE DELIVERED:
--- NOTE | 2021-05-03 20:06 | DI.VRAD_ITS ---
PROCEDURE INFORMATION: Exam: CT Head Without Contrast Exam date and time: 05/03/2021 6:55 PM Age: 65 years old Clinical indication: Altered mental status/memory loss; Confusion or disorientation; Patient HX: Weakness, AMS TECHNIQUE: Imaging protocol: Computed tomography of the head without contrast. Radiation optimization: All CT scans at this facility use at least one of these dose optimization techniques: automated exposure control; mA and/or kV adjustment per patient size (includes targeted exams where dose is matched to clinical indication); or iterative reconstruction. COMPARISON: CT HEAD WO 04/16/2021 3:54 AM FINDINGS: Brain: No acute intracranial hemorrhage, mass-effect, midline shift, or extra-axial collection is seen. The estevez white matter differentiation appears preserved. There is mild symmetric parenchymal volume loss. Cerebral ventricles: The ventricular system and basilar cisterns appear appropriate in size and configuration. Paranasal sinuses: There has been prior sinus surgery. There is extensive mucoperiosteal thickening throughout the visualized paranasal sinuses. Mastoid air cells: The mastoid air cells appear well-aerated. The visualized mastoid air cells appear well aerated. Auditory system: The middle ear cavities appear clear. Bones/joints: The bony calvarium appears intact. No depressed skull fracture is seen. Soft tissues: No significant scalp lesion is seen. IMPRESSION: 1. No acute intracranial abnormality seen. 2. Prior sinus surgery with findings of chronic sinusitis. Dictated and Authenticated by: Isaiah Haskins MD. Ordering:DANG Wagner MD
--- NOTE | 2021-05-03 20:11 | DI.VRAD_ITS ---
PROCEDURE INFORMATION: Exam: XR Chest Exam date and time: 05/03/2021 6:55 PM Age: 65 years old Clinical indication: Shortness of breath; Patient HX: Weakness, AMS TECHNIQUE: Imaging protocol: XR of the chest. Views: 2 views. COMPARISON: CR XR PORTABLE CHEST AP 04/17/2021 9:44 AM FINDINGS: Lungs: There is platelike atelectasis at the lung bases. Otherwise, no pulmonary consolidation is seen. Pleural spaces: No pleural effusion or pneumothorax is seen. Heart/Mediastinum: The heart appears normal in size. Diaphragm: There is elevation of the right hemidiaphragm. Bones/joints: There is a right shoulder arthroplasty prosthesis. The visualized bony structures appear grossly intact, as seen. There appears to be gross scoliotic spinal curvature in the thoracolumbar region, partially obscured and largely excluded from view. IMPRESSION: No active disease is seen in the chest. Dictated and Authenticated by: Isaiah Haskins MD. Ordering:DANG Wagner MD
--- NOTE | 2021-05-03 20:48 | W.PM.HP.N ---
Date of service: 05/03/21 Time of Service: 20:48 History of Present Illness History of Present Illness Chief Complaint: fatigue Narrative: 65 fmale with multiple problems, including unspecified psychiatric disorder, unspecified sleep disorder. Was here 2 weeks aPT for somnolence and noted to have rhabdo, responsive to IVF, though CPK still 800s on D/C as patient declined further IVF at that point. It was thought that her fatigue may have been med related and adjustments were made, including decrease in Prozac and institution of Zyprexa. Since d/c her Gabapentin has also been decreased. With that much as background she was brought in today having been sleeping almost all day. In ER findings of note fro patient appearing dry, Creat 1.4 and CPK PFSH Medical History Anxiety Arthralgia Blood glucose elevated Chronic back pain Cognitive deficits Colon polyps Degenerative arthritis of right shoulder region Dental caries GERD (gastroesophageal reflux disease) Goiter H/O: hysterectomy HTN (hypertension) Hyperlipidemia IBS (irritable bowel syndrome) Menopause Rotator cuff impingement syndrome Smoker Spinal stenosis Tremor Surgical History Colonoscopy - MAC (06/03/17) Social History Smoking/Tobacco Use Status: Current every day Tobacco Type: cigarettes Smoking risk assessment performed?: Yes Alcohol Intake: current Alcohol Intake frequency: a few times a week Alcohol type: hard liquor Drug use: Never Substance use type: does not use Do you feel safe at home: Yes Do you feel safe in your relationship?: Yes Additional Social history: Lives at home with and daughter Meds Allergies and Home Medications Allergies Allergy/AdvReac Type Severity Reaction Status Date / Time lidocaine Allergy arm numb Unverified 05/03/21 18:[address], traveled up arm diazepam [From Valium] AdvReac hyper Unverified 05/03/21 18:34 oxycodone AdvReac vomiting Unverified 05/03/21 18:34 scopolamine AdvReac makes Unverified 05/03/21 18:34 hyped up Home Medications Medication Instructions Recorded Confirmed Type fentanyl 75 mcg TRANSDERMAL q 72 hrs 05/19/17 05/03/21 History gabapentin 600 mg PO TID tab-cap 05/19/17 05/03/21 History hydroxychloroquine [Plaquenil] 300 mg PO DAILY 05/19/17 05/03/21 History lorazepam 1 mg PO TID PRN PRN 05/19/17 05/03/21 History diclofenac potassium 50 mg PO BID 04/16/21 05/03/21 History potassium chloride 10 meq PO DAILY 04/16/21 05/03/21 History promethazine 25 mg PO QID PRN PRN 04/16/21 05/03/21 History teriparatide [Forteo] 20 mcg SUBCUT DAILY 04/16/21 05/03/21 History torsemide 20 mg PO DAILY 04/16/21 05/03/21 History Narcan 4 - 8 mg INTRANASAL Q2-3M PRN 04/20/21 05/03/21 History fluoxetine [Prozac] 20 mg PO DAILY #30 cap 04/20/21 05/03/21 Rx methotrexate sodium 10 mg PO QWEEK 04/20/21 05/03/21 History olanzapine 15 mg PO DAILY #14 tab 04/20/21 05/03/21 Rx pilocarpine HCl 5 mg PO QID PRN 04/20/21 05/03/21 History Results Labs Result diagrams: 05/03/21 18:25 05/03/21 18:25 Labs: Laboratory Results - last 24 hr 05/03/21 05/03/21 05/03/21 18:25 18:25 18:25 WBC 9.18 RBC 4.51 Hgb 12.6 Hct 42.8 MCV 94.9 MCH 27.9 MCHC 29.4 L RDW 14.6 Plt Count 221 MPV 12.7 H Immature Gran % 0.1 Neutrophils % 72.3 Lymphocytes % 21.5 Monocytes % 3.5 Eosinophils % 2.4 Basophils % 0.2 Nucleated RBC % 0 Absolute Neutrophils 6.64 Absolute Lymphocytes 1.97 Absolute Monocytes 0.32 Absolute Eosinophils 0.22 Absolute Basophils 0.02 VBG Lactate 1.6 H Sodium 144 Potassium 4.1 Chloride 106 Carbon Dioxide 33.7 H Anion Gap 4.3 BUN 16 Creatinine 1.4 H Estimated GFR/1.73 m2 37.98 Glucose 101 Calcium 9.3 Magnesium 2.3 Total Bilirubin 0.3 AST 88 H ALT 58 Alkaline Phosphatase 160 H Creatine Kinase 3024 H Troponin I < 0.05 Total Protein 6.9 Albumin 3.6 TSH 0.58 Urine Color Urine Clarity Urine pH Ur Specific [place] Urine Protein Urine Ketones Urine Blood Urine Nitrite Urine Bilirubin Urine Urobilinogen Ur Leukocyte Esterase Urine Glucose Urine Opiates Screen Urine Methadone Screen Ur Barbiturates Screen Ur Tricyclics Screen Ur Amphetamines Screen U Benzodiazepines Scrn Urine Cocaine Screen Ur THC Screen Ethyl Alcohol < 3.0 05/03/21 05/03/21 19:20 19:20 WBC RBC Hgb Hct MCV MCH MCHC RDW Plt Count MPV Immature Gran % Neutrophils % Lymphocytes % Monocytes % Eosinophils % Basophils % Nucleated RBC % Absolute Neutrophils Absolute Lymphocytes Absolute Monocytes Absolute Eosinophils Absolute Basophils VBG Lactate Sodium Potassium Chloride Carbon Dioxide Anion Gap BUN Creatinine Estimated GFR/1.73 m2 Glucose Calcium Magnesium Total Bilirubin AST ALT Alkaline Phosphatase Creatine Kinase Troponin I Total Protein Albumin TSH Urine Color Yellow Urine Clarity Clear Urine pH 5.5 Ur Specific [place] >= 1.030 H Urine Protein Negative Urine Ketones Negative Urine Blood Negative Urine Nitrite Negative Urine Bilirubin Negative Urine Urobilinogen 0.2 Ur Leukocyte Esterase Negative Urine Glucose Negative Urine Opiates Screen Negative Urine Methadone Screen Negative Ur Barbiturates Screen Negative Ur Tricyclics Screen Negative Ur Amphetamines Screen Negative U Benzodiazepines Scrn Negative Urine Cocaine Screen Negative Ur THC Screen Negative Ethyl Alcohol Last Vital Signs Temp 36.6 C 05/03/21 18:01 Pulse 85 05/03/21 18:01 BP 107/62 05/03/21 18:01 Pulse Ox 92 05/03/21 18:01
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
--- NOTE | 2021-05-03 21:59 | W.ED.GENAD ---
Discharge Plan Disposition Patient Disposition: AGAINST MEDICAL ADVICE Condition: Serious Discharge Details Clinical Impression: Rhabdomyolysis, Fatigue Primary Care Provider: Kathleen Banks ED Provider: Kristy Chino Home Meds and New Rx's Prescriptions: No Action gabapentin 600 MG tablet 600 mg PO TID RF: 0 lorazepam 0.5 MG tablet 1 mg PO TID PRN PRNRF: 0 hydroxychloroquine [Plaquenil] 200 MG tablet 300 mg PO DAILY RF: 0 fentanyl 1 EACH patch 72 hour 75 mcg Transdermal q 72 hrs RF: 0 torsemide 20 mg Tablet 20 mg PO DAILY RF: 0 diclofenac potassium 50 mg Tablet 50 mg PO BID RF: 0 teriparatide [Forteo] 20 mcg/dose (620mcg/2.48mL) Pen Injector 20 mcg SUBCUT DAILY RF: 0 potassium chloride 10 mEq Capsule, Extended Release 10 meq PO DAILY RF: 0 promethazine 25 mg Tablet 25 mg PO QID PRN PRNRF: 0 pilocarpine HCl 5 mg tablet 5 mg PO QID PRN (Reason: Dry Mouth) RF: 0 methotrexate sodium 2.5 mg tablet 10 mg PO QWEEK RF: 0 Narcan 4 mg/actuation spray,non-aerosol 4 - 8 mg INTRANASAL Q2-3M PRN (Reason: Drug Intoxication Symptoms) RF: 0 olanzapine 15 mg tablet 15 mg PO DAILY Qty: 14 RF: 0 fluoxetine [Prozac] 20 mg capsule 20 mg PO DAILY Qty: 30 RF: 0 Discharge Instructions Additional Instructions: You are leaving AGAINST MEDICAL ADVICE, you are at risk for further deterioration and even It is very important that you hydrate yourself, you should have at least 8 glasses of water daily I recommend evaluation tomorrow and return to the emergency room at your earliest ability Medical Decision Making She had not check abnormality per radiology interpretation in my review Diagnostic labs are reassuring Lactate of 1.6, incomplete, no evidence of infectious etiology of patient's complaints Carbon dioxide 33 points even, no significant acute change from prior LFTs mildly elevated, no significant change Creatinine kinase 3024, do not see that she is on medications but should call Her initial troponin was negative and EKG did not show acute pathology Thyroid within normal limits and urinalysis negative for acute abnormality Methotrexate pending I did talk with hospitalist Dr. Huynh who is willing to admit patient and patient decided to take her IV out and is requesting discharge home I went back in to reassess when she is alert, oriented, of decisional capacity, she makes her own decisions and her is in the room, he understands that we cannot admit the patient against her ability she is competent to leave Of note, patient is ambulatory with steady gait around room, alert and oriented at time of discharge AGAINST MEDICAL ADVICE Unfortunate situation in this high-risk patient who benefit from admission, she seemingly understands this and he understands that she is at risk for further deterioration and even Medical Records Medical records reviewed: Yes I reviewed the patient's medical records. Lab Data Lab results reviewed: Yes I reviewed the patient's lab results. HPI General Date/Time Provider Initiated Documentation: 05/03/21 18:13. HPI Narrative: This complex 65-year-old female with history of undifferentiated dementia and rheumatoid disease presents with report of increased fatigue. was unable to wake patient that evening and this was around 5. He states he attempted to arouse her for approximately 3 hours and called EMS because he was unsuccessful. He states she was breathing and she had a pulse. He had a similar episode occurred 3 weeks ago. He states that he thinks he was secondary to dehydration. He denies any falls or injuries to date. He denies any new confusion. He does states she had a fall 2 days ago and did have her house was not evaluated at that time. [facility] her her medications and denies potential for overdose. Patient denies any suicidal or homicidal ideation. She denies any pain complaints. She does states she feels tired. states he is unable to give her fluids because she is sleeping all day reportedly. He does state that she had a reprieve recent increase in her Seroquel. She wants also discontinued off of several medications during her last hospitalization. She been taking all medications as prescribed. She is still on 75 mcg of fentanyl, this is not changed for years reportedly. Patient denies any pain complaints. She denies any additional new medications. Related Data Home Medications Medication Instructions Recorded Confirmed fentanyl 75 mcg TRANSDERMAL q 72 hrs 05/19/17 05/03/21 gabapentin 600 mg PO TID tab-cap 05/19/17 05/03/21 hydroxychloroquine [Plaquenil] 300 mg PO DAILY 05/19/17 05/03/21 lorazepam 1 mg PO TID PRN PRN 05/19/17 05/03/21 diclofenac potassium 50 mg PO BID 04/16/21 05/03/21 potassium chloride 10 meq PO DAILY 04/16/21 05/03/21 promethazine 25 mg PO QID PRN PRN 04/16/21 05/03/21 teriparatide [Forteo] 20 mcg SUBCUT DAILY 04/16/21 05/03/21 torsemide 20 mg PO DAILY 04/16/21 05/03/21 Narcan 4 - 8 mg INTRANASAL Q2-3M PRN 04/20/21 05/03/21 fluoxetine [Prozac] 20 mg PO DAILY #30 cap 04/20/21 05/03/21 methotrexate sodium 10 mg PO QWEEK 04/20/21 05/03/21 olanzapine 15 mg PO DAILY #14 tab 04/20/21 05/03/21 pilocarpine HCl 5 mg PO QID PRN 04/20/21 05/03/21 Previous Rx's Medication Instructions Recorded fluoxetine [Prozac] 20 mg PO DAILY #30 cap 04/20/21 olanzapine 15 mg PO DAILY #14 tab 04/20/21 Allergies Allergy/AdvReac Type Severity Reaction Status Date / Time lidocaine Allergy arm numb Unverified 05/03/21 18:[address], traveled up arm diazepam [From Valium] AdvReac hyper Unverified 05/03/21 18:34 oxycodone AdvReac vomiting Unverified 05/03/21 18:34 scopolamine AdvReac makes Unverified 05/03/21 18:34 hyped up General Stated Complaint: AMS/LOC FLORINA: 2 Review of Systems All systems reviewed & are unremarkable except as noted in HPI and below PFSH Medical History Anxiety Arthralgia Blood glucose elevated Chronic back pain Cognitive deficits Colon polyps Degenerative arthritis of right shoulder region Dental caries GERD (gastroesophageal reflux disease) Goiter H/O: hysterectomy HTN (hypertension) Hyperlipidemia IBS (irritable bowel syndrome) Menopause Rotator cuff impingement syndrome Smoker Spinal stenosis Tremor Surgical History Colonoscopy - [facility] (06/03/17) Social History Smoking/Tobacco Use Status: Current every day Tobacco Type: cigarettes Smoking risk assessment performed?: Yes Alcohol Intake: current Alcohol Intake frequency: a few times a week Alcohol type: hard liquor Drug use: Never Substance use type: does not use Do you feel safe at home: Yes Do you feel safe in your relationship?: Yes Additional Social history: Lives at home with and daughter Exam Const General: cooperative and no acute distress HENMT Other: Abrasion to right underlying chin, no intraoral trauma, dry mucous membrane Eyes Pupils: PERRL Neck Other: No midline tenderness, no meningismus, no visible sign of trauma Resp Effort & Inspection: normal respiratory effort Auscultation: clear to auscultation bilaterally Cardio Rate: regular rate Rhythm: regular rhythm GI Inspection: normal to inspection Other: No abdominal tenderness on palpation, no visible sign of trauma, no CVA tenderness Skin Other: See above documentation Neuro General: patient alert and patient oriented x3 Other: Negative [id number], negative heel mena, negative pronator drift, strength and sensation intact distally, GCS 15 other patient appears tired Extrem Other: No visible sign of trauma Psych Speech and Movement: speech and movement normal Affect: labile affect Course Vital Signs Vital signs: Vital Signs Temperature 36.6 C 05/03/21 18:01 Pulse 85 05/03/21 18:01 Blood Pressure 107/62 05/03/21 18:01 Pulse Oximetry 92 05/03/21 18:01 Temperature 36.6 C 05/03/21 21:24 Temperature Source Temporal Artery Scan 05/03/21 18:01 Pulse 70 05/03/21 21:24 Pulse 92 H 05/03/21 20:50 Respiratory Rate 14 05/03/21 21:24 Respiratory Effort 05/03/21 21:19 Respiratory Depth Normal 05/03/21 19:20 Respiratory Pattern Normal 05/03/21 19:20 Blood Pressure 120/88 05/03/21 18:47 Blood Pressure Mean 96 05/03/21 18:47 Blood Pressure Position Supine 05/03/21 18:01 Pulse Oximetry 94 05/03/21 21:24 Oxygen Delivery Method Room Air 05/03/21 18:01 Oxygen Flow Rate 0 05/03/21 18:01 Pain Level 0 05/03/21 21:24 Lab/Test Results Lab/Test Results: Laboratory Tests Range/Units 05/03/21 05/03/21 05/03/21 18:25 18:25 18:25 WBC (4.4-10.8) 10^3/uL 9.18 RBC (3.93-5.22) 10^6/uL 4.51 Hgb (11.2-15.7) g/dL 12.6 Hct (36.0-46.0) % 42.8 MCV (80-95) fL 94.9 MCH (27.0-33.0) pg 27.9 MCHC (32.0-36.0) % 29.4 L RDW (11.7-14.6) % 14.6 Plt Count (130-400) 10^3/uL 221 MPV (8.0-11.0) fL 12.7 H Immature Gran % 0.1 Neutrophils % 72.3 Lymphocytes % 21.5 Monocytes % 3.5 Eosinophils % 2.4 Basophils % 0.2 Nucleated RBC % % 0 Absolute Neutrophils (1.2-6.7) 10^3/uL 6.64 Absolute Lymphocytes (1.2-3.4) 10^3/uL 1.97 Absolute Monocytes (0.1-0.8) 10^3/uL 0.32 Absolute Eosinophils (0.0-0.7) 10^3/uL 0.22 Absolute Basophils (0.0-0.2) 10^3/uL 0.02 VBG Lactate (0.6-1.4) mmol/L 1.6 H Sodium (136-145) mmol/L 144 Potassium (3.5-5.1) mmol/L 4.1 Chloride (98-107) mmol/L 106 Carbon Dioxide (21.0-32.0) mmol/L 33.7 H Anion Gap (3-11) mmol/L 4.3 BUN (7-18) mg/dL 16 Creatinine (0.55-1.02) mg/dL 1.4 H Estimated GFR/1.73 m2 (mL/min/1.73m2) 37.98 Glucose (74-106) mg/dL 101 Calcium (8.5-10.1) mg/dL 9.3 Magnesium (1.8-2.4) mg/dL 2.3 Total Bilirubin (0.2-1.0) mg/dL 0.3 AST (15-37) U/L 88 H ALT (14-59) U/L 58 Alkaline Phosphatase (46-116) U/L 160 H Creatine Kinase (26-192) U/L 3024 H Troponin I (<0.06) ng/mL < 0.05 Total Protein (6.4-8.2) g/dL 6.9 Albumin (3.4-5.0) g/dL 3.6 TSH (0.36-3.74) uIU/mL 0.58 Urine Color (Yellow) Urine Clarity (Clear) Urine pH (5-8) Ur Specific [place] (1.005-1.025) Urine Protein (Negative) mg/dL Urine Ketones (Negative) mg/dL Urine Blood (Negative) Urine Nitrite (Negative) Urine Bilirubin (Negative) Urine Urobilinogen (Up TO 0.2) EU/dL Ur Leukocyte Esterase (Negative) Urine Glucose (Negative) mg/dL Urine Opiates Screen (Negative) Urine Methadone Screen (Negative) Ur Barbiturates Screen (Negative) Ur Tricyclics Screen (Negative) Ur Amphetamines Screen (Negative) U Benzodiazepines Scrn (Negative) Urine Cocaine Screen (Negative) Ur THC Screen (Negative) Ethyl Alcohol (<3) mg/dL < 3.0 Range/Units 05/03/21 05/03/21 19:20 19:20 WBC (4.4-10.8) 10^3/uL RBC (3.93-5.22) 10^6/uL Hgb (11.2-15.7) g/dL Hct (36.0-46.0) % MCV (80-95) fL MCH (27.0-33.0) pg MCHC (32.0-36.0) % RDW (11.7-14.6) % Plt Count (130-400) 10^3/uL MPV (8.0-11.0) fL Immature Gran % Neutrophils % Lymphocytes % Monocytes % Eosinophils % Basophils % Nucleated RBC % % Absolute Neutrophils (1.2-6.7) 10^3/uL Absolute Lymphocytes (1.2-3.4) 10^3/uL Absolute Monocytes (0.1-0.8) 10^3/uL Absolute Eosinophils (0.0-0.7) 10^3/uL Absolute Basophils (0.0-0.2) 10^3/uL VBG Lactate (0.6-1.4) mmol/L Sodium (136-145) mmol/L Potassium (3.5-5.1) mmol/L Chloride (98-107) mmol/L Carbon Dioxide (21.0-32.0) mmol/L Anion Gap (3-11) mmol/L BUN (7-18) mg/dL Creatinine (0.55-1.02) mg/dL Estimated GFR/1.73 m2 (mL/min/1.73m2) Glucose (74-106) mg/dL Calcium (8.5-10.1) mg/dL Magnesium (1.8-2.4) mg/dL Total Bilirubin (0.2-1.0) mg/dL AST (15-37) U/L ALT (14-59) U/L Alkaline Phosphatase (46-116) U/L Creatine Kinase (26-192) U/L Troponin I (<0.06) ng/mL Total Protein (6.4-8.2) g/dL Albumin (3.4-5.0) g/dL TSH (0.36-3.74) uIU/mL Urine Color (Yellow) Yellow Urine Clarity (Clear) Clear Urine pH (5-8) 5.5 Ur Specific [place] (1.005-1.025) >= 1.030 H Urine Protein (Negative) mg/dL Negative Urine Ketones (Negative) mg/dL Negative Urine Blood (Negative) Negative Urine Nitrite (Negative) Negative Urine Bilirubin (Negative) Negative Urine Urobilinogen (Up TO 0.2) EU/dL 0.2 Ur Leukocyte Esterase (Negative) Negative Urine Glucose (Negative) mg/dL Negative Urine Opiates Screen (Negative) Negative Urine Methadone Screen (Negative) Negative Ur Barbiturates Screen (Negative) Negative Ur Tricyclics Screen (Negative) Negative Ur Amphetamines Screen (Negative) Negative U Benzodiazepines Scrn (Negative) Negative Urine Cocaine Screen (Negative) Negative Ur THC Screen (Negative) Negative Ethyl Alcohol (<3) mg/dL
--- NOTE | 2021-05-04 08:04 | W.ED.FU ---
Follow Up Plan: Radiologist advised he feels there are bilateral infiltrates on the chest xray. Reviewed chart and she left ama after she had been recommended admission yesterday. Called her phone number unfortunately no answer so message was left for her to call back and discuss results and likely come back to the ED for antibiotics and reassessment.
[2021-05-04 16:20] LABS: Methotrexate <0.05 umol/L (See Note)
--- NOTE | 2021-05-05 14:42 | NUR.NOTE ---
Nursing Note: Prescription for Levofloxin 750 mg daily x 7 days called to [facility] per Dr Mckeon--message left with Estuardo to call ER for Prescription details. [phone]
--- NOTE | 2021-05-05 15:05 | NUR.NOTE ---
Mega-Estuardo called back--given message that a prescription has been called to [facility] in [facility]--Again was encouraged to come back to ER if Mayra is getting worse or not improving. Verbalizes understanding and will pick up driver prescription.Nursing Note:
== END 2021-05-03 21:08 | disposition left against medical advice (07) ==
PROVIDERS: Emergency Provider Physician Assistant; PCP Family Medicine
DX: J18.9 Pneumonia, unspecified organism (principal); M62.82 Rhabdomyolysis; R53.83 Other fatigue; Z53.29 Procedure and treatment not carried out because of patient's decision for other reasons; R41.82 Altered mental status, unspecified
CPT/HCPCS: 36415; 80053; 80307; 82550; 93005; 96360; 99285; 70450; 71046; 80320; 81003; 83520; 83605; 83735; 84443; 84484; 85025; 93010; 99284

== ENCOUNTER 2021-05-20 02:51 | Outpatient (CLI) | payer MEDICAID, SELFPAY ==
[2021-05-20 13:05] LABS: Abs Immature Grans 0.03 10^3/uL (0.0-0.06); Absolute Basophil Count 0.03 10^3/uL (0.0-0.2); Absolute Eosinophil Count 0.27 10^3/uL (0.0-0.7); Absolute Lymphocyte Count 2.36 10^3/uL (1.2-3.4); Absolute Monocyte Count 0.46 10^3/uL (0.1-0.8); Absolute Neutrophil Count 6.95 10^3/uL (1.2-6.7); Basophils % 0.3; Eosinophils % 2.7; HCT 37.9 % (36.0-46.0); HGB 12.1 g/dL (11.2-15.7); Immature Grans % 0.3; Lymphocytes % 23.4; MCH 28.5 pg (27.0-33.0); MCHC 31.9 % (32.0-36.0); MCV 89.2 fL (80-95); MPV 11.5 fL (8.0-11.0); Monocytes % 4.6; Neutrophils % 68.7; Nucleated RBC 0 %; Platelet Count 204 10^3/uL (130-400); RBC 4.25 10^6/uL (3.93-5.22); RDW 15.1 % (11.7-14.6); RDW-SD 48.1 fL
[2021-05-20 13:11] LABS: Hemoglobin A1C 5.9 % (<5.7)
[2021-05-20 14:35] LABS: ALT 41 U/L (14-59); AST 34 U/L (15-37); Albumin 3.6 g/dL (3.4-5.0); Alkaline Phosphatase 159 U/L (46-116); Anion Gap 10.2 mmol/L (3-11); BUN 12 mg/dL (7-18); Bilirubin, Total 0.2 mg/dL (0.2-1.0); C-Reactive Protein 2.19 mg/dL (0.0-0.3); CO2 30.8 mmol/L (21.0-32.0); CREATININE 1.2 mg/dL (0.55-1.02); Calculated LDL 117 mg/dL (<100); Chloride 104 mmol/L (98-107); Cholesterol 196 mg/dL (<200); Estimated GFR 45.37 (mL/min/1.73m2); Ferritin 49 ng/mL (8-252); Folate 4.7 ng/mL (8.6-20.0); Glucose 114 mg/dL (74-106); HDL Cholesterol 36 mg/dL (40-60); Potassium 3.6 mmol/L (3.5-5.1); Sodium 145 mmol/L (136-145); TSH 0.85 uIU/mL (0.36-3.74); Total Protein 6.4 g/dL (6.4-8.2); Triglyceride 216 mg/dL (<150); Vitamin B12 1320 pg/mL (193-986)
[2021-05-20 16:06] LABS: FREE T4 0.85 ng/dL (0.76-1.46)
[2021-05-20 21:30] LABS: Magnesium 1.9 mg/dL (1.7-2.8)
[2021-05-21 01:14] LABS: Vitamin D 25 Total 34.8 ng/mL (30-100)
== END 2021-05-20 02:52 | disposition home or self-care (01) ==
LOC: LBO 02:51
PROVIDERS: PCP Family Medicine; Visit Provider Psychiatry & Neurology Psychiatry
DX: F31.9 Bipolar disorder, unspecified (principal); Z79.899 Other long term (current) drug therapy
CPT/HCPCS: 36415; 80053; 80061; 82306; 82607; 82728; 82746; 83036; 83735; 84439; 84443; 84481; 85025; 86140

== ENCOUNTER 2021-07-15 04:35 | Outpatient (CLI) | payer MEDICAID, SELFPAY ==
[2021-07-15 14:23] LABS: Abs Immature Grans 0.02 10^3/uL (0.0-0.06); Absolute Basophil Count 0.03 10^3/uL (0.0-0.2); Absolute Eosinophil Count 0.55 10^3/uL (0.0-0.7); Absolute Lymphocyte Count 3.19 10^3/uL (1.2-3.4); Absolute Monocyte Count 0.72 10^3/uL (0.1-0.8); Absolute Neutrophil Count 4.26 10^3/uL (1.2-6.7); Basophils % 0.3; Eosinophils % 6.3; HGB 12.3 g/dL (11.2-15.7); Immature Grans % 0.2; Lymphocytes % 36.4; MCH 28.1 pg (27.0-33.0); MCHC 30.8 % (32.0-36.0); MCV 91.5 fL (80-95); MPV 12.5 fL (8.0-11.0); Monocytes % 8.2; Neutrophils % 48.6; Nucleated RBC 0 %; Platelet Count 225 10^3/uL (130-400); RBC 4.37 10^6/uL (3.93-5.22); RDW 14.9 % (11.7-14.6); RDW-SD 49.7 fL; WBC 8.77 10^3/uL (4.4-10.8)
[2021-07-15 15:10] LABS: ALT 36 U/L (14-59); AST 24 U/L (15-37); Alkaline Phosphatase 158 U/L (46-116); Anion Gap 8.8 mmol/L (3-11); BUN 16 mg/dL (7-18); Bilirubin, Total 0.2 mg/dL (0.2-1.0); CO2 32.2 mmol/L (21.0-32.0); CREATININE 1.1 mg/dL (0.55-1.02); Calcium 9.1 mg/dL (8.5-10.1); Chloride 102 mmol/L (98-107); Estimated GFR 50.01 (mL/min/1.73m2); Glucose 107 mg/dL (74-106); Sodium 143 mmol/L (136-145); Total Protein 6.4 g/dL (6.4-8.2)
== END 2021-07-15 04:36 | disposition home or self-care (01) ==
LOC: LBO 04:35
PROVIDERS: PCP Family Medicine; Visit Provider Internal Medicine Rheumatology
DX: L40.50 Arthropathic psoriasis, unspecified (principal); Z79.899 Other long term (current) drug therapy
CPT/HCPCS: 36415; 80053; 85025

== ENCOUNTER 2021-11-18 18:21 | Outpatient (REF) | payer MEDICAID, SELFPAY ==
[2021-11-18 21:56] LABS: Abs Immature Grans 0.03 10^3/uL (0.0-0.06); Absolute Basophil Count 0.01 10^3/uL (0.0-0.2); Absolute Eosinophil Count 0.11 10^3/uL (0.0-0.7); Absolute Lymphocyte Count 1.83 10^3/uL (1.2-3.4); Absolute Monocyte Count 0.23 10^3/uL (0.1-0.8); Absolute Neutrophil Count 6.31 10^3/uL (1.2-6.7); Basophils % 0.1; Eosinophils % 1.3; HGB 12.6 g/dL (11.2-15.7); Immature Grans % 0.4; Lymphocytes % 21.5; MCH 30.1 pg (27.0-33.0); MCHC 31.5 % (32.0-36.0); MCV 95.7 fL (80-95); MPV 12.9 fL (8.0-11.0); Monocytes % 2.7; Nucleated RBC 0 %; Platelet Count 223 10^3/uL (130-400); RBC 4.18 10^6/uL (3.93-5.22); RDW 14.6 % (11.7-14.6); RDW-SD 50.1 fL; WBC 8.52 10^3/uL (4.4-10.8)
[2021-11-18 22:19] LABS: ALT 71 U/L (14-59); AST 59 U/L (15-37); Albumin 4.1 g/dL (3.4-5.0); Alkaline Phosphatase 151 U/L (46-116); Anion Gap 10.6 mmol/L (3-11); BUN 10 mg/dL (7-18); Bilirubin, Total 0.5 mg/dL (0.2-1.0); C-Reactive Protein 0.87 mg/dL (0.0-0.3); CO2 30.4 mmol/L (21.0-32.0); CREATININE 1.1 mg/dL (0.55-1.02); Calcium 9.4 mg/dL (8.5-10.1); Chloride 101 mmol/L (98-107); Estimated GFR 50.01 (mL/min/1.73m2); Glucose 80 mg/dL (74-106); Sodium 142 mmol/L (136-145); Total Protein 6.8 g/dL (6.4-8.2)
== END 2021-11-18 18:22 | disposition home or self-care (01) ==
LOC: NCHCN 18:21
PROVIDERS: PCP Family Medicine; Visit Provider Family Medicine
DX: R73.03 Prediabetes (principal); M35.00 Sjogren syndrome, unspecified; G89.29 Other chronic pain; M62.81 Muscle weakness (generalized)
CPT/HCPCS: 80053; 85025; 86140

== ENCOUNTER → 2022-02-19 00:41 | Outpatient (CLI) | payer MEDICAID, SELFPAY ==
--- OUTSIDE RECORDS SUMMARY | 2022-02-19 00:43 | XMS_ITS ---
:1955 Author Care Team Providers Name Role Phone GUNNAR MILLER Primary Care Provider [phone] [facility] MEDICAL RECORDS OTHER [phone] [facility] ([facility]) Neurologist [phone] Allergies Code Code System Name Reaction Severity Status Onset 1399 RxNorm Benzocaine ? ? Active ? 2670 RxNorm Codeine ? ? Active ? 3322 RxNorm Diazepam ? ? Active ? 7028 RxNorm Hydrocodone ? ? Active ? 6978 RxNorm Lidocaine ? ? Active ? 7052 RxNorm Morphine ? ? Active ? 0405 RxNorm Oxycodone ? ? Active ? 9601 RxNorm Scopolamine ? ? Active ? Medications Name Status Start Date Stop Date ? ? diclofenac potassium 50 mg tablet Active 02/18/2021 Not available TK 1 T PO BID erythromycin 5 mg/gram (0.5 %) eye ointment Completed ? 02/18/2021 APPLY 1 INCH STRIP TO BOTH EYES BID fentanyl 75 mcg/hr transdermal patch Active ? Not available fluoxetine 40 mg capsule Active ? Not berenice ilable TAKE 1 CAPSULE BY MOUTH EVERY DAY Forteo 20 mcg/dose (600 mcg/2.4 mL) subcutaneous pen injector Ac tive ? Not available INJECT 0.08 ML UNDER THE SKIN ONCE DAILY gabapentin 600 mg tablet Active ? Not berenice ilable TAKE 2 TABLETS BY MOUTH THREE TIMES A DAY hydroxychloroquine Active ? Not available 300 mg daily hydroxychloroquine 200 mg tablet Completed ? 02/18/2021 TK 1 AND /2 TS PO D lorazepam 1 mg tablet Active ? Not availa ble TAKE 1 TABLET BY MOUTH THREE TIMES DAILY NEEDED methocarbamol 500 mg tablet Active ? Not available TAKE 1 TABLET BY MOUTH EVERY 8 HOURS PFR SPASMS methocarbamol 750 mg tablet Active ? Not available TAKE 1 TABLET BY MOUTH 3 TIMES A DAY methotrexate sodium 2.5 mg tablet Active ? Not available TK 4 TS PO 1 TIME A WK Narcan 4 mg/actuation nasal spray Active ? Not available BERTIN REP ALN omeprazole 20 mg capsule,delayed release Active ? Not available TAKE 1 CAPSULE BY MOUTH DAILY pantoprazole 40 mg tablet,delayed release Active ? Not available TAKE 1 TABLET BY MOUTH ONCE DAILY pilocarpine 5 mg tablet Active ? Not avai lable TAKE 1 TABLET BY MOUTH FOUR TIMES DAILY NEEDED FOR DRY MOUTH potassium chloride ER 10 mEq capsule,extended Active ? Not available release prednisolone acetate 1 % eye drops,suspension Active ? Not available INSTILL 1 DROP INTO OD QID promethazine 25 mg tablet Active ? Not av ailable TAKE 1/2 TO 1 TABLET BY MOUTH EVERY 6 HOURS NEEDED FOR NAUSE A tamsulosin 0.4 mg capsule Active ? Not av ailable TK ONE C PO QD torsemide 20 mg tablet Active ? Not avail able TK 1 T PO QD Unifine Pentips 29 gauge x 1/2 needle Completed ? 02/18/2021 USE DIRECTED WITH FORTEO Xifaxan 550 mg tablet Completed ? 02/18/2021 TK 1 T PO TID Problems Name Status Onset Date Source ? Polyp of Colon Active 10/14/2020 ? Cognitive Disorder Active 10/14/2020 ? Mood Disorder Active 10/14/2020 ? Anxiety Active 10/14/2020 ? Depressive Disorder Active 10/14/2020 ? Neuropathy Active 10/14/2020 ? Hypertensive Disorder Active 10/14/2020 ? Raynaud's Disease Active 10/14/2020 ? Vasculitis Active 10/14/2020 ? Chronic Obstructive Lung Disease Active 10/14/2020 ? Gastroesophageal Reflux Disease Active 10/14/2020 ? Sj?Gren's Syndrome Active 10/14/2020 ? Osteoarthritis Active 10/14/2020 ? Backache Active 10/14/2020 ? Tremor Active 10/14/2020 ? Heartburn Active 10/14/2020 ? Daytime Somnolence Active 02/18/2021 ? Obstructive Sleep Apnea Syndrome Active ? ? Procedures None recorded. Results Lab Results None recorded. Past Encounters 09/02/2021 Obstructive Sleep Apnea Syndrome; Daytim e Somnolence; Chronic Obstructive Lung Disease Meena Dhillon HOME SERVICE ADVISOR: [address] [place] [phone], Ph. 05/20/2021 Obstructive Sleep Apnea Syndrome; Daytim e Somnolence Meena Dhillon HOME SERVICE ADVISOR: [address] [phone], Ph. 02/18/2021 Daytime Somnolence; Chronic Obstructive Lung Disease Meena Dhillon HOME SERVICE ADVISOR: [address] [phone], Ph. Social History Tobacco Smoking Status Heavy Tobacco Smoker (1/2 pack per da y) Vaccine List None recorded. Plan of Care Reminders Provider Appointments None recorded. ? ? Lab None recorded. ? ? Referral None recorded. ? ? Procedures None recorded. ? ? Surgeries None recorded. ? ? Imaging None recorded. ? ? Vitals 09/02/2021 01:30PM Office 30 Height Weight BMI Blood Pressure 152.4 cm 58.97 kg 25.4 kg/m2 128/80 mm[Hg] 05/20/2021 01:30PM Office 30 Height Weight BMI Blood Pressure 152.4 cm 65.77 kg 28.3 kg/m2 122/78 mm[Hg] 02/18/2021 01:15PM New Patient 45 Height Weight BMI Blood Pressure 152.4 cm 58.97 kg 25.4 kg/m2 132/80 mm[Hg]
== END ==
PROVIDERS: PCP Family Medicine; Visit Provider Family Medicine

== ENCOUNTER 2022-09-30 13:44 | Outpatient (CLI) | payer MEDICARE, MEDICAID, SELFPAY ==
[2022-09-30 14:00] LABS: Hemoglobin A1C 5.9 % (<5.7)
[2022-09-30 15:22] LABS: Abs Immature Grans 0.03 10^3/uL (0.0-0.06); Absolute Basophil Count 0.02 10^3/uL (0.0-0.2); Absolute Eosinophil Count 0.22 10^3/uL (0.0-0.7); Absolute Lymphocyte Count 1.99 10^3/uL (1.2-3.4); Absolute Monocyte Count 0.38 10^3/uL (0.1-0.8); Absolute Neutrophil Count 4.51 10^3/uL (1.2-6.7); Basophils % 0.3; Eosinophils % 3.1; HCT 38.3 % (36.0-46.0); HGB 11.7 g/dL (11.2-15.7); Immature Grans % 0.4; Lymphocytes % 27.8; MCH 25.8 pg (27.0-33.0); MCHC 30.5 % (32.0-36.0); MCV 85 fL (80-95); MPV 12.9 fL (8.0-11.0); Monocytes % 5.3; Neutrophils % 63.1; Platelet Count 181 10^3/uL (130-400); RBC 4.53 10^6/uL (3.93-5.22); RDW 16.1 % (11.7-14.6); RDW-SD 50.2 fL; Vitamin D 25 Total 37.7 ng/mL (30-100); WBC 7.15 10^3/uL (4.4-10.8)
[2022-09-30 15:24] LABS: ALT 23 U/L (14-59); AST 25 U/L (15-37); Albumin 4.4 g/dL (3.4-5.0); Alkaline Phosphatase 172 U/L (46-116); Anion Gap 8.6 mmol/L (3-11); BUN 20 mg/dL (7-18); Bilirubin, Total 0.4 mg/dL (0.2-1.0); CO2 31.4 mmol/L (21.0-32.0); CREATININE 1.4 mg/dL (0.55-1.02); Calcium 8.7 mg/dL (8.5-10.1); Calculated LDL 177 mg/dL (<100); Chloride 101 mmol/L (98-107); Cholesterol 262 mg/dL (<200); Estimated GFR 41.75 (mL/min/1.73m2); Ferritin 22 ng/mL (8-252); Folate 10.6 ng/mL (8.6-20.0); Glucose 77 mg/dL (74-106); HDL Cholesterol 65 mg/dL (40-60); Magnesium 1.8 mg/dL (1.8-2.4); Potassium 3.6 mmol/L (3.5-5.1); Sodium 141 mmol/L (136-145); Total Protein 7.4 g/dL (6.4-8.2); Triglyceride 104 mg/dL (<150); Vitamin B12 768 pg/mL (193-986)
[2022-09-30 15:56] LABS: C-Reactive Protein 1.47 mg/dL (0.0-0.3); FREE T4 0.99 ng/dL (0.76-1.46)
[2022-09-30 22:35] LABS: T3, Total 158 ng/dL (97-169)
[2022-10-02 11:15] LABS: Copper, Serum 128 mcg/dL (77-206)
== END 2022-09-30 13:45 | disposition home or self-care (01) ==
LOC: LBO 13:45
PROVIDERS: PCP Family Medicine; Visit Provider Psychiatry & Neurology Psychiatry
DX: F31.9 Bipolar disorder, unspecified (principal)
CPT/HCPCS: 36415; 80053; 80061; 82306; 82525; 82607; 82728; 82746; 83036; 83735; 84439; 84443; 84480; 85025; 86140

== ENCOUNTER 2023-03-25 13:07 | Outpatient (CLI) | payer MEDICARE, MEDICAID, SELFPAY ==
[2023-03-25 15:05] LABS: Albumin 3.9 g/dL (3.4-5.0); Alkaline Phosphatase 141 U/L (46-116); Calcium 8.1 mg/dL (8.5-10.1)
[2023-03-25 16:01] LABS: Vitamin D 25 Total 31.9 ng/mL (30-100)
[2023-03-25 22:20] LABS: Parathyroid Hormone,Intact 414 pg/mL (19-88)
[2023-03-28 10:05] LABS: Prealbumin 23 mg/dL (20-40)
[2023-03-28 12:42] LABS: Beta-CrossLaps (B-CTx) 145 pg/mL
[2023-03-28 14:40] LABS: NTX-Telopeptide 10.1 nM BCE
== END 2023-03-25 13:08 | disposition home or self-care (01) ==
LOC: LBO 13:09
PROVIDERS: PCP Family Medicine; Visit Provider Nurse Practitioner Family
DX: M81.0 Age-related osteoporosis without current pathological fracture (principal); I10 Essential (primary) hypertension; E04.9 Nontoxic goiter, unspecified
CPT/HCPCS: 36415; 82306; 82523; 82040; 82310; 83970; 84075; 84134

== ENCOUNTER → 2023-05-19 10:08 | Outpatient (CLI) | payer MEDICARE, MEDICAID, SELFPAY ==
--- NOTE | 2023-05-19 | DI.RAD_ITS ---
Exam(s) XR ANKLE RT 2V EXAM: XR ANKLE RT 2V CLINICAL HISTORY: ACUTE RT ANKLE PAIN M25.571. TECHNIQUE: 2D digital imaging was performed of the right ankle. Three images were obtained. AP, la teral and oblique views were obtained. COMPARISON: CR RIGHT ANKLE COMPLETE from 10/25/2017 FINDINGS: BONES: No acute fracture is present. No bony destructive lesion is seen. JOINTS: The degenerative changes in the right ankle have significantly progressed since the prior exa mination. There is narrowing of the lateral tibial talar joint. There osteophyte seen anteriorly at the joint. There is a well corticated osseous density at the anterior aspect of the joint which may represent a loose body. Well corticated osseous densities are seen adjacent to both the lateral mal leolus and the medial malleolus which appear old. SOFT TISSUE: There is soft tissue swelling of the ankle laterally. IMPRESSION: Progressive degenerative changes are seen in the right ankle since 2018. There is soft tissue swelli ng laterally. Please see the above discussion for complete details. DATA REPOSITORY: RADIATION DOSE DELIVERED:
== END ==
PROVIDERS: PCP Family Medicine; Visit Provider Internal Medicine Rheumatology
DX: M19.071 Primary osteoarthritis, right ankle and foot (principal)
CPT/HCPCS: 73600

== ENCOUNTER 2023-05-31 02:45 | Outpatient (CLI) | payer MEDICARE, MEDICAID, SELFPAY ==
[2023-05-31 14:19] LABS: ALT 23 U/L (14-59); AST 15 U/L (15-37); Albumin 3.7 g/dL (3.4-5.0); Alkaline Phosphatase 89 U/L (46-116); Anion Gap 7.7 mmol/L (3-11); BUN 13 mg/dL (7-18); Bilirubin, Total 0.3 mg/dL (0.2-1.0); CO2 28.3 mmol/L (21.0-32.0); CREATININE 1.1 mg/dL (0.55-1.02); Calcium 8.8 mg/dL (8.5-10.1); Chloride 102 mmol/L (98-107); Estimated GFR 55.76 (mL/min/1.73m2); Glucose 91 mg/dL (74-106); Magnesium 2.1 mg/dL (1.8-2.4); PHOSPHORUS 3.9 mg/dL (2.6-4.7); Potassium 4.5 mmol/L (3.5-5.1); Sodium 138 mmol/L (136-145); Total Protein 7.1 g/dL (6.4-8.2)
[2023-05-31 18:44] LABS: Vitamin D 25 Total 32.6 ng/mL (30-100)
== END 2023-05-31 02:46 | disposition home or self-care (01) ==
LOC: LBO 02:45
PROVIDERS: PCP Family Medicine; Visit Provider Internal Medicine Endocrinology, Diabetes & Metabolism
DX: M81.0 Age-related osteoporosis without current pathological fracture (principal)
CPT/HCPCS: 36415; 80053; 82306; 82784; 83516; 83735; 83970; 84100

== ENCOUNTER 2023-06-01 10:08 | Outpatient (CLI) | payer MEDICARE, MEDICAID, SELFPAY ==
[2023-06-01 18:28] LABS: Parathyroid Hormone,Intact 76 pg/mL (19-88)
[2023-06-02 12:38] LABS: IgA 163 mg/dL (85-499); Interpretation (See Note); Tissue Transglutaminase IgA <1.2 U/mL (<4.0)
== END 2023-06-01 10:09 | disposition home or self-care (01) ==
LOC: LBO 10:10
PROVIDERS: PCP Family Medicine; Visit Provider Internal Medicine Endocrinology, Diabetes & Metabolism
DX: M81.0 Age-related osteoporosis without current pathological fracture (principal)
CPT/HCPCS: 82784; 83516; 83970

== ENCOUNTER 2023-09-16 15:25 | Emergency (ER) | payer MEDICARE, OTHER, SELFPAY ==
[2023-09-16 15:29] VITALS: BP 202/92; PULSE 93; RESP 18; TEMP 37; O2SAT 98
--- NOTE | 2023-09-16 15:45 | RT.EKG_ITS ---
APPROVED REPORT Exam: Resting ECG Reason for Exam: left arm pain Patient Location: E HR:91 bpm ECG Measurements Heart Rate 91 AXIS NE 197 P 46 QRSd 93 QRS 43 QT 388 T 42 QTc 476 Conclusion Sinus rhythm.. V-rate 60- [address]. [address] segment or T wave abnormlaiteis to suggest occlusive GA.
[2023-09-16] MEDS: ACETAMINOPHEN 1,000 MG/100 ML BTL 400 MG IVPB (16:20)
[2023-09-16] MEDS: HYDROmorphone 2 MG/ML SYR 0.5 MG IVP (16:20)
--- NOTE | 2023-09-16 16:24 | ED.GENADUL_ITS ---
Discharge Plan Disposition Patient Disposition: Home Discharge Details Clinical Impression: Arm pain, left Primary Care Provider: Kathleen Banks ED Provider: Prasanth Fairchild Home Meds and New Rx's Prescriptions: Continued lorazepam 0.5 MG tablet 1 mg PO TID PRN PRN hydroxychloroquine [Plaquenil] 200 MG tablet 300 mg PO DAILY fentanyl 1 EACH patch 72 hour 75 mcg Transdermal q 72 hrs methocarbamol 500 mg tablet 500 mg PO TID lisdexamfetamine [Vyvanse] 20 mg capsule 20 mg PO DAILY fluticasone propionate 50 mcg/actuation spray,suspension 1 spray intranasal BID Rx Instructions: administer into each nostril omeprazole 20 mg capsule,delayed release(DR/EC) 20 mg PO DAILY torsemide 20 mg Tablet 20 mg PO DAILY teriparatide [Forteo] 20 mcg/dose (620mcg/2.48mL) Pen Injector 20 mcg SUBCUT DAILY potassium chloride 10 mEq Capsule, Extended Release 10 meq PO DAILY promethazine 25 mg Tablet 25 mg PO QID PRN PRN Rx Instructions: Take 1/2 to 1 tab 4 x Day PRN methotrexate sodium 2.5 mg tablet 10 mg PO QWEEK Patient Comments: TAKE 4 TABLETS BY MOUTH 1 TIME A WEEK naloxone [Narcan] 4 mg/actuation spray,non-aerosol 4 - 8 mg INTRANASAL Q2-3M PRN (Reason: Drug Intoxication Symptoms) Patient Comments: BERTIN REP ALN fluoxetine [Prozac] 20 mg capsule 20 mg PO DAILY Qty: 30 0RF Discharge Instructions Instructions: Arm Pain (ED) Additional Instructions: Please wear the sling for comfort and remove the arm at least twice a day and perform gentle range of motion activities as tolerated. Please continue to take all your normally prescribed medication and you may take [id number] pain meds as directed on packaging. Return to the emergency department immediately for any new or significant worsening of symptoms otherwise it is very important that you follow-up with your primary care provider as you may need further outpatient workup for nonemergent diagnosis. Referrals: Kathleen Banks [Primary Care Provider] - Medical Decision Making Patient presenting to the emergency department for chief complaint of left shoulder/arm pain. Patient reports around 3 AM she woke up complaining of significant pain and discomfort to her left arm. She states pain radiated from her shoulder into her medial aspect of her upper arm and somewhat into her armpit. Patient denies any chest pain shortness of breath back or neck pain. Patient does have significant past medical history of thoracic outlet syndrome with surgery on the left, bilateral shoulder surgery, chronic back pain with use of opioids, smoking with Raynaud's syndrome. Physical exam shows severely limited range of motion secondary to pain and discomfort only located though to the shoulder with pain worsening with movement. From the elbow down exam is unremarkable except for noted delayed capillary refill but this is noted bilateral and consistent with Raynaud's syndrome. Bedside ultrasound was utilized and there is appropriate pulses noted both radially and ulnar along with brachial pulse noted. Given patient's history will perform labs and CTA imaging due to her thoracic outlet syndrome. Pending results we will treat her pain. Please see physician interpretation for full interpretation of EKG but upon my review patient is in sinus rhythm with no findings to suggest acute STEMI. Reviewed patient's labs and CBC is overall nondiagnostic, CMP shows slightly elevated glucose and slightly low protein which I do not feel emergent, troponin is negative. CTA imaging along with radiologist interpretation shows no acute findings noted. Reassessed patient and patient had minimal improvement with interventions and states some more description that this feels more neuropathic. Unfortunately patient is already on max dose of gabapentin. At this time not finding any emergent findings I do feel that patient may need further workup on outpatient basis. Did discuss return and follow-up precautions especially given the delayed cap refill and history of thoracic outlet syndrome. After discussion of diagnosis and plan of care patient has no further needs, questions, or concerns and states clear understanding to return to the emergency department for any worsening symptoms. This documentation was generated using [employer] dictation system, please disregard any oddities of phrase or misspellings. Imaging Data Radiologic Study: Imaging: CT Scan Radiologist's impression: Exam(s) CT THORAX CTA EXAM: CT THORAX CTA CLINICAL HISTORY: Left arm pain, history of thoracic outlet syndrome. TECHNIQUE: Imaging Protocol: Axial CT angiography was performed with multi- slice acquisition and multi-planar reconstructions as well as axial, coronal and sagittal MIP reconstructions. CONTRAST MATERIAL: Intravenous: Omnipaque 350 Contrast volume:100 ml COMPARISON: CT CT CHEST WO from 08/13/2020 CR XR PORTABLE CHEST AP from 04/17/2021 CR,XR XR CHEST 2V PA LATERAL from 05/03/2021 FINDINGS: Evaluation of the region of the shoulders is is limited by artifact from bilateral shoulder prostheses. Pulmonary Arteries: No evidence of filling defect to suggest pulmonary emboli. Tracheobronchial tree: Patent where visualized. Mediastinum and Alba: No dominant adenopathy or fluid collection. Pulmonary parenchyma: Bibasilar atelectasis. No consolidation or dominant measurable mass. Mild emphysematous changes. Pleura: No effusion or pneumothorax. Heart: The heart is not dilated. No coronary artery calcifications are seen. Aorta: Thoracic aorta non-dilated. Mild atherosclerotic changes. No dissect ion. Upper abdomen: Unremarkable. Bones: Scoliosis. Degenerative changes. Apparent resection of a portion of the left 1st rib Tubes, Catheters, and Lines: None Soft tissues: Unremarkable. IMPRESSION: No evidence of pulmonary embolism or aortic dissection. Bibasilar linear atelectasis/scarring. Lab Data Lab results reviewed: Yes I reviewed the patient's lab results. HPI General Mode of arrival: ambulatory . Date/Time Provider Initiated Documentation: 09/16/23 15:35 . Limitations to Documentation: no limitations . Information obtained by: patient, family and RN notes reviewed . History of Present Illness 68 year old F presents to the emergency department with the chief complaint of Left shoulder pain, described as moderate and severe, and is localized to the left and upper extremity. Patient distal and reports radiation to. Patient started experiencing this hour(s) (12) and it has been constant. Movement worsens symptoms . Patient notes no other symptoms.. Patient did receive the following treatments prior to arrival, other (Currently on the prescribed medication) Related Data Home Medications Medication Instructions Recorded Confirmed fentanyl 62.5 mcg/hour transdermal 75 mcg transdermal q 72 hrs 05/19/17 09/16/23 patch hydroxychloroquine 200 mg tablet 300 mg PO DAILY 05/19/17 09/16/23 (Plaquenil) lorazepam 0.5 mg tablet 1 mg PO TID PRN PRN 05/19/17 09/16/23 potassium chloride 10 mEq 10 meq PO DAILY 04/16/21 09/16/23 capsule,extended release promethazine 25 mg tablet 25 mg PO QID PRN PRN 04/16/21 09/16/23 teriparatide 20 mcg/dose (620 20 mcg subcut DAILY 04/16/21 09/16/23 mcg/2.48 mL) subcutaneous pen injector (Forteo) torsemide 20 mg tablet 20 mg PO DAILY 04/16/21 09/16/23 fluoxetine 20 mg capsule (Prozac) 20 mg PO DAILY #30 caps 04/20/21 09/16/23 methotrexate sodium 2.5 mg tablet 10 mg PO QWEEK 04/20/21 09/16/23 naloxone 4 mg/actuation nasal 4 - 8 mg intranasal Q2-3M PRN Drug 04/20/21 09/16/23 spray (Narcan) Intoxication Symptoms fluticasone propionate 50 1 spray intranasal BID 06/30/22 09/16/23 mcg/actuation nasal spray,suspension lisdexamfetamine 20 mg capsule 20 mg PO DAILY 06/30/22 09/16/23 (Vyvanse) methocarbamol 500 mg tablet 500 mg PO TID 06/30/22 09/16/23 omeprazole 20 mg capsule,delayed 20 mg PO DAILY 06/30/22 09/16/23 release Previous Rx's Medication Instructions Recorded fluoxetine 20 mg capsule (Prozac) 20 mg PO DAILY #30 caps 04/20/21 Allergies Allergy/AdvReac Type Severity Reaction Status Date / Time lidocaine Allergy arm numb Unverified 09/16/23 15:[address], traveled up arm diazepam [From Valium] AdvReac hyper Unverified 09/16/23 15:33 oxycodone AdvReac vomiting Unverified 09/16/23 15:33 scopolamine AdvReac makes Unverified 09/16/23 15:33 hyped up General Stated Complaint: GenMedical FLORINA: 3 Review of Systems Constitutional Constitutional: Denies chills, Denies fever(s) and Denies headache(s) ENT Ears, Nose, Mouth, and Throat: Denies headache(s) and Denies neck pain Cardiovascular Cardiovascular: Denies chest pain, Denies rapid heart rate, Denies radiating jaw, neck or arm pain and Denies dyspnea Respiratory Respiratory: Denies cough and Denies dyspnea Musculoskeletal Musculoskeletal: Reports as per HPI, Denies back pain (No change from baseline), Denies neck pain, Denies numbness and Reports tingling Integumentary/Breasts Skin/Breast: Denies rash and Denies skin pain Neurologic Neurologic: Denies headache(s), Denies numbness and Reports tingling PFSH All Active Problems (Updated 09/16/23 @ 19:13 by Prasanth Fairchild NP) Arm pain, left (Acute) Current every day smoker (Acute) Rhabdomyolysis (Acute) Fatigue (Acute) Degenerative arthritis of right shoulder region (Acute) Medical History Facial numbness Sjogren's disease Smoker IBS (irritable bowel syndrome) Colon polyps HTN (hypertension) GERD (gastroesophageal reflux disease) Cognitive deficits Rotator cuff impingement syndrome Chronic back pain H/O: hysterectomy Tremor Spinal stenosis Hyperlipidemia Blood glucose elevated Goiter Dental caries Anxiety Arthralgia Menopause Surgical History Colonoscopy - [facility] (06/03/17) Social History Smoking/Tobacco Use Status: Current every day Tobacco Type: cigarettes Smoking risk assessment performed?: Yes Alcohol Intake: current Alcohol Intake frequency: a few times a week Alcohol type: hard liquor Drug use: Never Substance use type: does not use Do you feel safe at home: Yes Do you feel safe in your relationship?: Yes Additional Social history: Lives at home with and daughter Exam Const General: cooperative and not ill appearing Orientation: alert, awake and oriented x3 HENMT Mouth: moist mucous membranes Resp Effort & Inspection: normal respiratory effort, able to speak in complete sentences and no respiratory distress Auscultation: clear to auscultation bilaterally Cardio Rate: regular rate Rhythm: regular rhythm Heart Sounds: S1 normal and S2 normal Pulses: normal peripheral pulses Skin General skin exam: no rashes or lesions noted Neuro General: patient alert, patient awake, patient oriented x3, moves all extremities and no focal motor deficits Sensory Exam: no sensory deficits noted Extrem Right upper extremity: hand Details: vascular exam Details: abnormal capillary refill Details: of the entire hand Left upper extremity: shoulder/upper arm Details: tenderness Location: of the proximal humerus and over the subacromial bursa, axillary nerve sensory function normal and abnormal ROM Details: held in an abnormal fashion Details: in ADduction and in flexion, pain with active ROM and pain with passive ROM, elbow/forearm Details: normal to inspection and normal ROM; no tenderness, wrist Details: normal to inspection and normal ROM; no tenderness and hand Details: neuromotor exam normal, neurosensory exam normal, tendon exam normal, vascular exam Details: abnormal capillary refill (delayed ) Details: of the entire hand and normal ROM of fingers; no tenderness Course Vital Signs Vital signs: Vital Signs Temperature 37 C 09/16/23 15:29 Pulse 93 H 09/16/23 15:29 Respiratory Rate 18 09/16/23 15:29 Blood Pressure 202/92 H 09/16/23 15:29 Pulse Oximetry 98 09/16/23 15:29 Temperature 37 C 09/16/23 15:29 Temperature Source Temporal Artery Scan 09/16/23 15:29 Pulse 93 H 09/16/23 15:29 Respiratory Rate 18 09/16/23 15:29 Respiratory Effort Normal 09/16/23 15:41 Respiratory Depth Normal 09/16/23 15:41 Respiratory Pattern Normal 09/16/23 15:41 Blood Pressure 202/92 H 09/16/23 15:29 Blood Pressure Position Sitting 09/16/23 15:29 Pulse Oximetry 98 09/16/23 15:29 Oxygen Delivery Method Room Air 09/16/23 15:29 Oxygen Flow Rate 0 09/16/23 15:29 PAWSS Have you Been Recently Intoxicated or Drunk Within the Last 30 days?: No Have you Ever Experienced Previous Episodes of Alcohol Withdrawal?: No Have you ever Experienced Withdrawal Seizures?: No Have you ever Experienced Delirium Tremens(DT)s?: No Have you ever undergone Alcohol Rehabilitation Treatment (i.e, inpt ot outpatient treatment programs)?: No Have you ever Experienced Blackouts?: No Have you ever Combined Alcohol with other Downers within the last 90 days?: No Have you ever Combined Alcohol with any other Substance of Abuse during the last 90 days?: No Positive Blood Alcohol level on Presentation? [PCS.BAL]: No Evidence of Increased Autonomic Activity (i.e. HR>120, tremor, sweating, agitation, nausea)?: No Result: 0
[2023-09-16 16:29] LABS: Abs Immature Grans 0.02 10^3/uL (0.0-0.06); Absolute Basophil Count 0.02 10^3/uL (0.0-0.2); Absolute Eosinophil Count 0.24 10^3/uL (0.0-0.7); Absolute Lymphocyte Count 1.85 10^3/uL (1.2-3.4); Absolute Monocyte Count 0.55 10^3/uL (0.1-0.8); Absolute Neutrophil Count 5.87 10^3/uL (1.2-6.7); Basophils % 0.2; Eosinophils % 2.8; HCT 40.7 % (36.0-46.0); HGB 12.8 g/dL (11.2-15.7); Immature Grans % 0.2; Lymphocytes % 21.6; MCH 28.3 pg (27.0-33.0); MCHC 31.4 % (32.0-36.0); MCV 90 fL (80-95); Monocytes % 6.4; Neutrophils % 68.8; Platelet Count 147 10^3/uL (130-400); RBC 4.52 10^6/uL (3.93-5.22); RDW 13.5 % (11.7-14.6); RDW-SD 45.6 fL; WBC 8.55 10^3/uL (4.4-10.8)
[2023-09-16] MEDS: Diclofenac 1% Gel 100 GM TUBE TP (16:39)
[2023-09-16] MEDS: Normal Saline 1,000 ML 1000 ML IV (16:39)
[2023-09-16 16:47] LABS: ALT 26 U/L (14-59); AST 19 U/L (15-37); Albumin 3.7 g/dL (3.4-5.0); Alkaline Phosphatase 112 U/L (46-116); Anion Gap 7.9 mmol/L (3-11); BUN 17 mg/dL (7-18); Bilirubin, Total 0.4 mg/dL (0.2-1.0); CO2 29.1 mmol/L (21.0-32.0); CREATININE 0.9 mg/dL (0.55-1.02); Calcium 8.7 mg/dL (8.5-10.1); Chloride 104 mmol/L (98-107); Estimated GFR 70.51 (mL/min/1.73m2); Glucose 128 mg/dL (74-106); Magnesium 1.9 mg/dL (1.8-2.4); Potassium 3.8 mmol/L (3.5-5.1); Sodium 141 mmol/L (136-145); Total Protein 6.3 g/dL (6.4-8.2); Troponin I < 50 ng/L (<or=60)
[2023-09-16] MEDS: Normal Saline - Diluent 50 ML VIAL IJ (17:50)
[2023-09-16] MEDS: Omnipaque 350 MG/ML 100 ML BTL IJ (17:51)
--- NOTE | 2023-09-16 18:25 | DI.CT_ITS ---
Exam(s) CT THORAX CTA EXAM: CT THORAX CTA CLINICAL HISTORY: Left arm pain, history of thoracic outlet syndrome. TECHNIQUE: Imaging Protocol: Axial CT angiography was performed with multi-slice acquisition and mu lti-planar reconstructions as well as axial, coronal and sagittal MIP reconstructions. CONTRAST MATERIAL: Intravenous: Omnipaque 350 Contrast volume:100 ml COMPARISON: CT CT CHEST WO from 08/13/2020 CR XR PORTABLE CHEST AP from 04/17/2021 CR,XR XR CHEST 2V PA LATERAL from 05/03/2021 FINDINGS: Evaluation of the region of the shoulders is is limited by artifact from bilateral shoulder prosth eses. Pulmonary Arteries: No evidence of filling defect to suggest pulmonary emboli. Tracheobronchial tree: Patent where visualized. Mediastinum and Alba: No dominant adenopathy or fluid collection. Pulmonary parenchyma: Bibasilar atelectasis. No consolidation or dominant measurable mass. Mild em physematous changes. Pleura: No effusion or pneumothorax. Heart: The heart is not dilated. No coronary artery calcifications are seen. Aorta: Thoracic aorta non-dilated. Mild atherosclerotic changes. No dissection. Upper abdomen: Unremarkable. Bones: Scoliosis. Degenerative changes. Apparent resection of a portion of the left 1st rib Tubes, Catheters, and Lines: None Soft tissues: Unremarkable. IMPRESSION: No evidence of pulmonary embolism or aortic dissection. Bibasilar linear atelectasis/scarring. RADIATION DOSE DELIVERED: Total DLP DATA REPOSITORY: All CT scans at this facility are submitted to the National Radiology Data Registry (NRDR) Dose Index Registry (DIR) with the [employer] (ACR). RADIATION OPTIMIZATION: All CT scans at this facility use at least one of these dose optimization te chniques: automated exposure control; mA and/or kV adjustment per patient size (includes targeted exa ms where dose is matched to clinical indication); or iterative reconstruction.
[2023-09-16] MEDS: Lidocaine 5% Patch 1 PATCH TP (19:19)
[2023-09-16 19:28] VITALS: BP 142/110; PULSE 87; RESP 17; TEMP 36.6; O2SAT 99
== END 2023-09-16 19:40 | disposition home or self-care (01) ==
PROVIDERS: Emergency Provider Nurse Practitioner Family; PCP Family Medicine
DX: M79.602 Pain in left arm (principal)
CPT/HCPCS: 36415; 71275; 80053; 93005; 96361; 96365; 96375; 99285; 83735; 84484; 85025; 93010; J0131; J1170; J3490

== ENCOUNTER 2024-08-17 02:29 | Outpatient (CLI) | payer MEDICARE, OTHER, SELFPAY ==
[2024-08-17] MEDS: Inhaler, Assist Device 1 EACH MC (14:25)
[2024-08-17] MEDS: Levalbuterol HFA 15 GM INH 4 PUFF IH (14:26)
--- NOTE | 2024-08-20 15:20 | W.PFT ---
Date of service: 08/17/24 Time of Service: 13:04 Pulmonary Function Test Result Indications: COPD Interpretation Spirometry: There is no airflow limitation.No bronchodilator response Lung Volumes: Normal lung volumes Diffusion Capacity: Normal diffusion Airway Pressure: Normal airways resistance Impression Normal pulmonary function Clinical Correlation therefore is recommended.
== END 2024-08-17 02:30 | disposition home or self-care (01) ==
LOC: RT 02:30
PROVIDERS: PCP Family Medicine; Visit Provider Student in an Organized Health Care Education/Training Program
DX: J44.9 Chronic obstructive pulmonary disease, unspecified (principal)
CPT/HCPCS: 94060; 94726; 94729

== ENCOUNTER 2024-09-13 00:07 | Outpatient (CLI) | payer MEDICARE, OTHER, SELFPAY ==
--- NOTE | 2024-09-13 | DI.US_ITS ---
Exam(s) US CAROTID EXAM: US CAROTID CLINICAL HISTORY: R09.89 Other Specified symptoms and signs involving circulatory. TECHNIQUE: Ultrasound carotids performed using grayscale, color-flow, and spectral Doppler imaging. COMPARISON: No exams were available for comparison FINDINGS: RIGHT CAROTID ARTERY: Plaque: Calcified plaque noted at the common carotid bulb and proximal internal and external carotid arteries. Velocity elevation: Velocity elevation consistent with 50-69 percent stenosis. LEFT CAROTID ARTERY: Plaque: Mild plaque at bulb. Velocity elevation: None. VERTEBRAL ARTERIES: Antegrade flow. Measurements: R Bulb: 268.3cm/s PS / 58.9cm/s ED R CCA: 88cm/s PS / 23.2cm/s ED R ECA: 223.1cm/s PS / 45.3cm/s ED R ICA Prox: 315.3cm/s PS / 76.2cm/s ED R ICA Mid: 121.4cm/s PS / 25.2cm/s ED R ICA Distal: 101.7cm/s PS /38.4cm/s ED R Vert: 85.8cm/s PS / 21.3cm/s ED R SVR: 3.6 R DVR: 3.3 L Bulb: 114.3cm/s PS / 26.6cm/s ED L CCA: 72.8cm/s PS / 20.3cm/s ED L ECA: 93.8cm/s PS / 16.7cm/s ED L ICA Prox: 100.1cm/s PS / 29.8cm/s ED L ICA Mid: 88cm/s PS / 20.1cm/s ED L ICA Distal: 100.1cm/s PS / 33.5cm/s ED L Vert: 56.4cm/s PS / 22.5cm/s ED L SVR: 1.6 L DVR: 1.3 IMPRESSION: Calcific plaque at the right common carotid bulb and proximal right internal carotid artery causing m oderate stenosis of 50-69 percent. Mild plaque at the left common carotid bulb without significant stenosis. Criteria for Carotid Stenosis: Normal: ICA PSV <125 cm/s no plaque or intimal thickening is visible. <50% stenosis: ICA PSV <125 cm/s and plaque or intimal thickening is visible. 50-69% stenosis: ICA PSV is 125-250 cm/s and plaque is visible. >70% stenosis to near occlusion: ICA PSV >250 cm/s with visible plaque and luminal narrowing. DATA REPOSITORY:
== END 2024-09-13 00:27 ==
PROVIDERS: PCP Family Medicine; Visit Provider Family Medicine
DX: I65.21 Occlusion and stenosis of right carotid artery (principal)
CPT/HCPCS: 93880

== ENCOUNTER 2024-10-25 07:34 | Outpatient (CLI) | payer MEDICARE, OTHER, SELFPAY ==
--- NOTE | 2024-10-25 06:00 | DI.RAD_ITS ---
Exam(s) XR PAIN CLINIC CERVICAL SP 2V EXAM: XR PAIN CLINIC CERVICAL SP 2V CLINICAL HISTORY: Dx: Cervical Radciulopathy. TECHNIQUE: Fluoroscopy was provided for the referring physician for guidance with performing pain cl inic injection procedure. COMPARISON: No exams were available for comparison FINDINGS: Please see procedure note for details. Fluoro time: 19.9 seconds RADIATION DOSE DELIVERED: Ka,r=1.61 mGy
[2024-10-25 07:44] VITALS: BP 160/94; PULSE 91; RESP 20; TEMP 36.7; O2SAT 99
[2024-10-25 08:29] VITALS: PULSE 85; RESP 14; O2SAT 99
[2024-10-25 08:30] VITALS: PULSE 89; RESP 15; O2SAT 99
[2024-10-25 08:33] VITALS: BP 211/99; PULSE 89; PULSE 90; RESP 19; O2SAT 99
[2024-10-25 08:43] VITALS: BP 166/120; PULSE 97
[2024-10-25] MEDS: Omnipaque 240 MG/ML 50 ML BTL IJ (08:44)
[2024-10-25] MEDS: Epidural Tray 1 EACH MC (08:45)
[2024-10-25] MEDS: Dexamethasone Sod. Phos./Pres-Free 10 MG/ML VIAL IJ (08:45)
--- NOTE | 2024-10-25 11:27 | PDOC.PAIN_ITS ---
Date of service: 10/25/24 Time of Service: 09:00 Pain Managment Procedure Note Procedure Note Procedure Note: Procedure Note Cervical Interlaminar Epidural Steroid Injection Date of Service: October 25, 2024 Patient:Mayra Saucedo? Provider:? Gregory Billy DO, MPH Mayra has been referred to the [facility] for cervical epidural steroid injection.? Pre-operative diagnosis: Cervical Radiculopathy ICD-10 M54.12 Post-operative diagnosis: Same Pre-procedure pain: VAS= 8/10 Comments: She was having difficulty extending her right wrist and fingers. She is unsure when this started. Mayra was interviewed and the medical record was reviewed.? There were no medical, pharmacologic, radiographic or other structural contraindications to attempting fluoroscopically guided cervical interlaminar epidural steroid injection.? Risks, potential side effects, indications, and potential benefits of the procedure were reviewed with Mayra.? Questions and concerns were addressed.? After it was clear that the patient was fully informed about the procedure, the printed consent form was signed by the patient and myself.? aMyra was placed in the prone position on the fluoroscopy table and automated blood pressure cuff as well as pulse oximeter was applied. A standard time-out procedure was performed. The skin entry point for entering the epidural space by a midline C7-T1 interlaminar approach was identified under fluoroscopy and marked.? The skin entry point was thoroughly cleaned with Chlorhexadine preparation and the skin was draped.? Next a mixture of 2 mls of 1% lidocaine was infiltrated into the area of the planned skin entry point and underlying subcutaneous tissues.? Next an 18 gauge Tuohy needle was placed under fluoroscopic guidance and with loss of resistance technique into the epidural space utilizing multiple AP and 55 degree contralateral fluoroscopic views.? Upon correct needle placement and loss of resistance, there were no paresthesia or return of blood or CSF through the needle. Next 1 mls of preservative-free Omnipaque 240 was injected with clear epidural spread in the A/P and oblique views. Next, a solution of 15 mg of preservative-free Dexamethasone was injected. This was followed with 1ml of preservative-free normal saline. No unusual discomfort was expressed by Mayra. The needle was withdrawn without difficulty. (49 mls of Omnipaque and 5 mg of Dexamethasone was wasted) Mayra was observed and was without hemodynamic, neurologic, or allergic reactions.? Fluoroscopic images were digitally archived. Mayra's vital signs were stable throughout the procedure and were as recorded in the doc flowsheet by the nursing staff.? If given, dosages of intravenous drugs for anxiolysis and analgesia were documented in MAR. Follow up plans and appointments were discussed with Mayra.? Post procedure instruction was given as documented in nursing documentation and having met discharge criteria, [facility] the [facility]. A retrospective review of interlaminar cervical ESIs found that approximately two-thirds of patients with symptomatic cervical radiculopathy from disc herniation were able to avoid surgery for up to 1 year with treatment. Success rate was improved with earlier injection (< 100 days from diagnosis). Emilee EL, Toya V, Ruben L, Marysol AN, Ollie CESAR. Cervical epidural steroid injections for symptomatic disc herniations. J Spinal Disord Tech. 2006 January;19(3):183-6. ? COMMENTS: No apparent complications. Post-procedure pain: VAS= 4/10. Mayra to contact [facility] as needed. If at least 50% improvement in pain and/or function for at least 3 months is achieved, this procedure can be repeated. I personally completed the entire procedure. GREGORY BILLY DO, MPH ABPMR-subspecialty board certification in Pain Medicine [facility] [facility]
== END 2024-10-25 07:35 | disposition home or self-care (01) ==
LOC: PC 07:34
PROVIDERS: PCP Family Medicine; Visit Provider Preventive Medicine Occupational Medicine
DX: M54.2 Cervicalgia (principal); M54.12 Radiculopathy, cervical region
CPT/HCPCS: 62321; 72040; J1100; Q9967

== ENCOUNTER 2024-11-28 13:14 | Outpatient (REF) | payer MEDICARE, OTHER, SELFPAY ==
[2024-11-28 15:03] LABS: Calculated LDL 107 mg/dL (<100); Cholesterol 218 mg/dL (<200); HDL Cholesterol 55 mg/dL (>or=50); Triglyceride 280 mg/dL (<150)
== END 2024-11-28 13:15 | disposition home or self-care (01) ==
LOC: NCHCN 13:14
PROVIDERS: PCP Family Medicine; Visit Provider Family Medicine
DX: R09.89 Other specified symptoms and signs involving the circulatory and respiratory systems (principal)
CPT/HCPCS: 80061

== ENCOUNTER 2025-03-06 02:02 | Outpatient (CLI) | payer MEDICARE, OTHER, SELFPAY ==
--- NOTE | 2025-03-06 | DI.DEXA_ITS ---
Exam(s) XR DEXA BONE DENSITY W/WO HEMANTH EXAM: XR DEXA BONE DENSITY W/WO HEMANTH CLINICAL HISTORY: M81.0 Age-related osteoporosis w/o current pathological fracture TECHNIQUE: COMPARISON: No exams were available for comparison FINDINGS: Lateral Spine Image: The lateral spine image is suboptimal due to patient positioning and thoracolumbar scoliotic curvature. Left hip: Total T-Score: -2.8 Total Z-Score: -1.4 T- and Z-scores: The findings are consistent with osteoporosis. Lumbar Spine: Total T-Score: -0.9 Total Z-Score: 1.1 T- and Z-scores: Within normal limits. There is osteoporosis in the left forearm with a total T-score of -2.6 and a Z- score of -0.8. IMPRESSION: Osteoporosis in the left hip and left forearm.
== END 2025-03-06 02:22 ==
PROVIDERS: PCP Family Medicine; Visit Provider Family Medicine
DX: M81.0 Age-related osteoporosis without current pathological fracture (principal)
CPT/HCPCS: 77080